=== PATIENT | male | born 1945 | race Caucasian/White ===

== ENCOUNTER 2019-04-11 07:36 | Outpatient (CLI) | payer MEDICARE, MEDICAID ==
[2019-04-11 12:15] LABS: ALBUMIN 3.7 g/dL (3.2-5.5); ALBUMIN/GLOBULIN RATIO 1.1 (1.0-2.2); ALKALINE PHOSPHATASE 57 IU/L (42-121); ALT ALANINE AMINOTRANSFERASE 16 IU/L (10-60); AST ASPARTATE AMINOTRANSFERASE 19 IU/L (10-42); BILIRUBIN,TOTAL 0.7 mg/dL (0.2-1.0); BUN - BLOOD UREA NITROGEN 28 mg/dL (6-20); CARBON DIOXIDE - CO2 27 mmol/L (21-32); CHLORIDE 105 mmol/L (101-111); CHOL/HDL RATIO 3.3 (<5.0); CHOLESTEROL 153 mg/dL; CK- CREATINE KINASE 110 IU/L (22-269); CREATININE 1.3 mg/dL (0.6-1.2); GFR - MDRD 54 (>89); GLUCOSE 88 mg/dL (70-100); HDL CHOLESTEROL 46 mg/dL; LDL CHOLESTEROL,CALCULATED 77 mg/dL; LDL/HDL RATIO 1.7 (<3.6); SODIUM 143 mmol/L (135-145); VLDL CHOLESTEROL 30 mg/dL
[2019-04-11 12:24] LABS: BASOPHILS # (AUTO) 0.1 10^3/uL (0.0-0.1); BASOPHILS % (AUTO) 0.9 %; EOSINOPHILS # (AUTO) 0.5 10^3/uL (0.0-0.7); EOSINOPHILS % (AUTO) 8.2 %; HGB - HEMOGLOBIN 14.1 g/dL (14.0-18.0); LYMPHOCYTES # (AUTO) 2.1 10^3/uL (1.5-3.5); LYMPHOCYTES % (AUTO) 32.5 %; MEAN CORPUSCULAR HEMOGLOBIN 28.4 pg (27.0-31.0); MEAN CORPUSCULAR HGB CONC 30.1 g/dL (32.0-36.0); MEAN CORPUSCULAR VOLUME 94.4 fL (80.0-94.0); MEAN PLATELET VOLUME 11.5 fL (7.4-11.4); MONOCYTES # (AUTO) 0.7 10^3/uL (0.0-1.0); MONOCYTES % (AUTO) 11.2 %; PLT - PLATELET COUNT 301 10^3/uL (130-450); RED BLOOD COUNT 4.97 10^6/uL (4.70-6.10); RED CELL DISTRIBUTION WIDTH 17.7 % (12.0-15.0); WHITE BLOOD COUNT 6.6 x10^3/uL (4.8-10.8)
[2019-04-12 11:36] LABS: HEPATITIS C ANTIBODY NON-REACTIVE (NON-REACTIVE)
== END 2019-04-11 23:59 | disposition home or self-care (01) ==
LOC: LAB.N 07:36
PROVIDERS: ATTEND Internal Medicine
DX: Z79.899 Other long term (current) drug therapy (principal); Z11.59 Encounter for screening for other viral diseases; Z13.6 Encounter for screening for cardiovascular disorders; I10 Essential (primary) hypertension; I48.91 Unspecified atrial fibrillation; K21.9 Gastro-esophageal reflux disease without esophagitis; E78.5 Hyperlipidemia, unspecified; Z87.820 Personal history of traumatic brain injury; F32.9 Major depressive disorder, single episode, unspecified; F41.9 Anxiety disorder, unspecified; J80 Acute respiratory distress syndrome; F20.9 Schizophrenia, unspecified; F03.90 Unspecified dementia, unspecified severity, without behavioral disturbance, psychotic disturbance, mood disturbance, and anxiety
CPT/HCPCS: 36415; 80053; 80061; 81001; 81003; 82550; 83721; 84443; 85025; 86803; 87086

== ENCOUNTER 2019-10-23 19:10 | Outpatient (CLI) | payer MEDICARE, MEDICAID | END 2019-10-23 19:11 | disposition EMS.NT | LOC: EMS 19:10 | PROVIDERS: ATTEND Surgery | DX: R53.1 Weakness (principal) ==

== ENCOUNTER 2021-05-07 09:00 | Outpatient (CLI) | payer MEDICARE, MEDICAID ==
[2021-05-07 12:32] LABS: BASOPHILS # (AUTO) 0.1 10^3/uL (0.0-0.1); BASOPHILS % (AUTO) 1.1 %; EOSINOPHILS # (AUTO) 0.7 10^3/uL (0.0-0.7); EOSINOPHILS % (AUTO) 11.1 %; HCT - HEMATOCRIT 52.2 % (42.0-52.0); HGB - HEMOGLOBIN 16.2 g/dL (14.0-18.0); LYMPHOCYTES # (AUTO) 1.5 10^3/uL (1.5-3.5); LYMPHOCYTES % (AUTO) 22.7 %; MEAN CORPUSCULAR HEMOGLOBIN 30.2 pg (27.0-31.0); MEAN CORPUSCULAR VOLUME 97.2 fL (80.0-94.0); MEAN PLATELET VOLUME 11.8 fL (7.4-11.4); MONOCYTES # (AUTO) 0.5 10^3/uL (0.0-1.0); NEUTROPHILS # (AUTO) 3.8 10^3/uL (1.5-6.6); NEUTROPHILS % (AUTO) 56.6 %; PLT - PLATELET COUNT 206 10^3/uL (130-450); RED BLOOD COUNT 5.37 10^6/uL (4.70-6.10); RED CELL DISTRIBUTION WIDTH 14.3 % (12.0-15.0); WHITE BLOOD COUNT 6.7 x10^3/uL (4.8-10.8)
[2021-05-07 12:48] LABS: ALBUMIN 3.8 g/dL (3.2-5.5); ALBUMIN/GLOBULIN RATIO 1.4 (1.0-2.2); ALKALINE PHOSPHATASE 53 IU/L (42-121); ALT ALANINE AMINOTRANSFERASE 16 IU/L (10-60); AST ASPARTATE AMINOTRANSFERASE 14 IU/L (10-42); BILIRUBIN,TOTAL 0.5 mg/dL (0.2-1.0); BUN - BLOOD UREA NITROGEN 25 mg/dL (6-20); CALCIUM 8.8 mg/dL (8.5-10.3); CARBON DIOXIDE - CO2 30 mmol/L (21-32); CHLORIDE 100 mmol/L (101-111); CHOL/HDL RATIO 3.5 (<5.0); CHOLESTEROL 149 mg/dL; CK- CREATINE KINASE 99 IU/L (22-269); CREATININE 1.3 mg/dL (0.6-1.2); GFR - MDRD 54 (>89); GLUCOSE 87 mg/dL (70-100); HDL CHOLESTEROL 43 mg/dL; LDL CHOLESTEROL,CALCULATED 78 mg/dL; LDL/HDL RATIO 1.8 (<3.6); MAGNESIUM 2.1 mg/dL (1.7-2.8); SODIUM 138 mmol/L (135-145); TOTAL PROTEIN 6.6 g/dL (6.7-8.2); TRIGLYCERIDES 139 mg/dL; VLDL CHOLESTEROL 28 mg/dL
== END 2021-05-07 09:01 | disposition home or self-care (01) ==
LOC: LAB.N 09:00
PROVIDERS: ATTEND Internal Medicine
DX: I10 Essential (primary) hypertension (principal); I48.91 Unspecified atrial fibrillation; E78.5 Hyperlipidemia, unspecified; F20.9 Schizophrenia, unspecified; M62.40 Contracture of muscle, unspecified site; Z13.6 Encounter for screening for cardiovascular disorders; Z79.899 Other long term (current) drug therapy
CPT/HCPCS: 36415; 80053; 80061; 82550; 83721; 83735; 84443; 85025

== ENCOUNTER 2023-09-02 17:04 | Outpatient (CLI) | payer MEDICARE, MEDICAID | END 2023-09-02 23:59 | disposition critical access hospital (66) | LOC: EMS 17:04 | DX: R53.1 Weakness (principal); Z86.16 Personal history of COVID-19 | CPT/HCPCS: A0425; A0429 ==

== ENCOUNTER 2023-09-02 17:54 | Inpatient (IN) | payer MEDICARE, MEDICAID ==
[2023-09-02 18:33] LABS: BASOPHILS % (AUTO) 0.6 %; HCT - HEMATOCRIT 42.6 % (42.0-52.0); HGB - HEMOGLOBIN 13.7 g/dL (14.0-18.0); LYMPHOCYTES % (AUTO) 2.1 %; MEAN CORPUSCULAR HEMOGLOBIN 29.9 pg (27.0-31.0); MEAN CORPUSCULAR HGB CONC 32.2 g/dL (32.0-36.0); MEAN PLATELET VOLUME 11.9 fL (7.4-11.4); MONOCYTES % (AUTO) 9.5 %; NEUTROPHILS % (AUTO) 82.7 %; PLT - PLATELET COUNT 348 10^3/uL (130-450); RED BLOOD COUNT 4.58 10^6/uL (4.70-6.10); RED CELL DISTRIBUTION WIDTH 14.9 % (12.0-15.0); WHITE BLOOD COUNT 27.8 x10^3/uL (4.8-10.8)
[2023-09-02 18:35] LABS: SLIDE REVIEW? Indicated
[2023-09-02 18:36] LABS: ABNORMAL LYMPHS % (MANUAL) 0 %
[2023-09-02 18:37] LABS: BILIRUBIN,TOTAL 0.5 mg/dL (0.2-1.0); CALCIUM 9.2 mg/dL (8.5-10.3); CARBON DIOXIDE - CO2 26 mmol/L (21-32); CHLORIDE 108 mmol/L (101-111); POTASSIUM 5.6 mmol/L (3.5-4.5); SODIUM 144 mmol/L (135-145)
[2023-09-02 18:42] LABS: ALKALINE PHOSPHATASE 63 IU/L (42-121); ALT ALANINE AMINOTRANSFERASE 15 IU/L (10-60); AST ASPARTATE AMINOTRANSFERASE 22 IU/L (10-42); BUN - BLOOD UREA NITROGEN 69 mg/dL (6-20); CREATININE 2.3 mg/dL (0.6-1.3); GFR - MDRD 28 (>89); GLUCOSE 108 mg/dL (74-104); TOTAL PROTEIN 6.1 g/dL (6.4-8.9)
[2023-09-02 18:51] LABS: LIPASE < 10 U/L (11-82)
--- NOTE | 2023-09-02 19:10 | XRAY Report ---
PROCEDURE: Chest 1V INDICATIONS: cough/sob/hypoxia TECHNIQUE: One view of the chest was acquired. COMPARISON: None. FINDINGS: Surgical changes and devices: None. Lungs and pleura: Large, loculated left-sided pleural effusion with left atelectasis/consolidation. Mediastinum: Mediastinal contours appear normal. Heart size is normal. Bones and chest wall: No suspicious bony lesions. Overlying soft tissues appear unremarkable. IMPRESSION: Large, loculated left-sided pleural effusion with left sided atelectasis/consolidation. Reviewed by: Rafael Olsen MD on 09/02/2023 7:08 PM PDT Approved by: Rafael Olsen MD on 09/02/2023 7:08 PM PDT Station ID: [id number]
[2023-09-02 19:20] LABS: BAND NEUTROPHILS % (MANUAL) 15 %; LYMPHOCYTES # (MANUAL) 1.1 10^3/uL (1.5-3.5); LYMPHOCYTES % (MANUAL) 1 %; MONOCYTES # (MANUAL) 2.5 10^3/uL (0.0-1.0); NEUTROPHILS # (MANUAL) 24.2 10^3/uL (1.5-6.6); REACTIVE LYMPHS % (MANUAL) 3 %
[2023-09-02 19:21] LABS: PLATELET ESTIMATE, MANUAL NORMAL (130-450,000) (NORMAL); PLATELET MORPHOLOGY NORMAL APPEARANCE (NORMAL); RBC MORPHOLOGY (MULTIPLE) NORMAL APPEARANCE (NORMAL)
[2023-09-02 19:22] LABS: DIFFERENTIAL COMMENT MANUAL DIFFERENTIAL
--- NOTE | 2023-09-02 19:31 | ED Physician Documentation ---
PD HPI DYSPNEA - Stated complaint Stated Complaint: LOW O2 SAT - Chief complaint Chief Complaint: Resp - History obtained from History obtained from: EMS - Additional information Additional information: 77yM presents from [facility] ([phone]) full code, with pmh TBI, schizophrenia, dementia, afib on xarelto and metoprolol, htn, recent covid last month. Patient is unreliable historian, alert to person and aware he is hospital but unable to state the year. [facility] jail called ems because his oxygen level was in low 80s on RA which is new for him. further history limited by patient dementia Review of Systems Unable to obtain: Dementia PD PAST MEDICAL HISTORY - Past Medical History Past Medical History: Yes Cardiovascular: Hypertension, Atrial fibrillation Respiratory: Other Neuro: Other GI: GERD Psych: Depression, Anxiety, Schizophrenia Other Past Medical History: TBI/ ARF - Allergies Allergies/Adverse Reactions: Allergies Allergy/AdvReac Type Severity Reaction Status Date / Time Sulfa (Sulfonamide Allergy Hives Verified 09/02/23 18:18 Antibiotics) - Social History Does the pt smoke?: No Smoking Status: Never smoker Does the pt drink ETOH?: No Does the pt have substance abuse?: No - Immunizations Immunizations are current?: Yes PD ED PE NORMAL - Vitals Vital signs reviewed: Yes - General General: Other (AOX1 or 2. mild increased wob. elderly appearing) - HEENT HEENT: Atraumatic, PERRL, EOMI, Moist mucous membranes, Pharynx benign - Neck Neck: Supple, no meningeal sign - Cardiac Cardiac: RRR - Respiratory Respiratory: Other (diminished L lung sounds) - Abdomen Abdomen: Non tender, Non distended Results - Vitals Vitals: Vital Signs - 24 hr 09/02/23 09/02/23 09/02/23 18:10 18:48 19:00 Temperature 37.1 C Heart Rate 83 83 75 Respiratory 37 H 28 H 33 H Rate Blood Pressure 144/49 H 132/47 H 122/52 L O2 Saturation 94 96 98 If not protocol 15 15 : Oxygen Flow, liters/minute Oxygen O2 Source Non-rebreather mask Oxygen Flow Rate 15 - Labs Labs: Laboratory Tests 09/02/23 09/02/23 17:55 17:55 WBC 27.8 H RBC 4.58 L Hgb 13.7 L Hct 42.6 MCV 93.0 MCH 29.9 MCHC 32.2 RDW 14.9 Plt Count 348 MPV 11.9 H Neut # (Auto) STAKE DRIVER Lymph # (Auto) STAKE DRIVER Hood # (Auto) STAKE DRIVER Eos # (Auto) STAKE DRIVER Baso # (Auto) STAKE DRIVER Absolute Nucleated RBC STAKE DRIVER Total Counted 100 Band Neuts % (Manual) 15 H Reactive Lymphs % (Man) 3 Abnorm Lymph % (Manual) 0 Nucleated RBC % STAKE DRIVER Neutrophils # (Manual) 24.2 H Lymphocytes # (Manual) 1.1 L Monocytes # (Manual) 2.5 H Eosinophils # (Manual) 0.0 Basophils # (Manual) 0.0 Differential Comment MANUAL DIFFERENTIAL Manual Slide Review Indicated Platelet Estimate NORMAL (130-450,000) Platelet Morphology NORMAL APPEARANCE RBC Morph Micro Appear NORMAL APPEARANCE Sodium 144 Potassium 5.6 H Chloride 108 Carbon Dioxide 26 Anion Gap 10.0 BUN 69 H Creatinine 2.3 H Estimated GFR (MDRD) 28 L Glucose 108 H Calcium 9.2 Total Bilirubin 0.5 AST 22 ALT 15 Alkaline Phosphatase 63 Total Protein 6.1 L Albumin 3.0 L Globulin 3.1 Albumin/Globulin Ratio 1.0 Lipase < 10 L PD Medical Decision Making - ED course ED course: 77yM with pmh dementia, afib on eliquis, presents with hypoxia from jail, desaturating to 70s here on arrival to ED off of oxygen. Patient now stabilized on 15L facemask at 96%. He is not tachycardic but his metoprolol may be masking septic signs. Septic workup ordered and antibiotics for HCAP ordered. small amount IVF provided given patient has large pleural effusion on left side on cxr. plan to admit to ICU. Departure - Departure Clinical Impression: Pneumonia, Hypoxia, Large pleural effusion Condition: Serious Forms: PCP List
[2023-09-02 19:57] LABS: VBG PH 7.34 (7.31-7.41)
[2023-09-02 19:58] LABS: VBG BASE EXCESS -0.8 mmol/L (-2 - +2); VBG HCO3 25.4 mmol/L (23-28); VBG OXYGEN SATURATION 65.5 % (60-80); VBG PCO2 48.2 mmHg (41-51); VBG PO2 36.6 mmHg (25-47); VBG TOTAL CO2 26.9 mmol/L (24-29)
[2023-09-02] MEDS ORDERED: VANCOMYCIN 1 GM VIAL ONE ×2 (20:24→21:37)
[2023-09-02] MEDS: SODIUM CHLORIDE 0.9% 250 ML IV STA (20:27)
[2023-09-02] MEDS: CEFEPIME 2 GM in SODIUM CHLORIDE 0.9% MINIBAG 100 ML IV STA (20:29)
[2023-09-02] MEDS ORDERED: SODIUM CHLORIDE FLUSH 0.9% 10 ML SYRINGE IVP PRN (20:57)
[2023-09-02] MEDS ORDERED: ONDANSETRON 4 MG/2 ML VIAL IVP PRN (20:57)
[2023-09-02] MEDS ORDERED: ACETAMINOPHEN 325 MG TABLET PO PRN (20:57)
--- NOTE | 2023-09-02 21:06 | HISTORY & PHYSICAL EXAMINATION ---
History of Present Illness - Admitted From Admitted From:: ED - History Obtained From Records Reviewed: EMR History obtained from: ED staff. patient c dementia Exam Limitations: Tele medicine - History of Present Illness HPI Comment/Other: 77YOM presents from [facility] ([phone]) full code, with pmh TBI, parkinsons, seizure, schizophrenia, dementia, afib on x arelto and metoprolol, htn, hld recent covid last month. Patient is unreliable historian, alert to person and aware he is hospital but unable to state the year. Staff at [facility] called ems because his oxygen level was in low 80s on RA which is new for him. further history limited by patient dementia. spoke with RN at [facility] re: patient and home meds Here in the ED, patient was hypoxic requiring face mask. he was noted for sepsis. CXR shows left loculated pleural effusion and consolidation. Patient was started on abx in the ED. ED staff reached out to Hospital Medicine for admission and medical management. ED staff confirm to Hospital Medicine that hospital has IR that can do thoracentesis/ chest tube for loculated pleural effusion with PNA management. History - Past Medical History Cardiovascular: reports: Hypertension, Atrial fibrillation Respiratory: reports: Other Neuro: reports: Other GI: reports: GERD Psych: reports: Depression, Anxiety, Schizophrenia Other Past Medical History: TBI/ ARF Meds/Allgy - Allergies Allergies/Adverse Reactions: Allergies Allergy/AdvReac Type Severity Reaction Status Date / Time Sulfa (Sulfonamide Allergy Hives Verified 09/02/23 18:18 Antibiotics) Review of Systems - Other Findings Other Findings: limited 2/2 dementia Exam - Vital Signs Reviewed Vital Signs: Yes Vital Signs: Vital Signs x48h Temp Pulse Resp BP Pulse Ox O2 Flow Rate 09/02/23 19:00 75 33 H 122/52 L 98 15 09/02/23 18:48 83 28 H 132/47 H 96 15 09/02/23 18:10 37.1 C 83 37 H 144/49 H 94 - Physical Exam General Appearance: positive: Alert, Mild distress Eyes Bilateral: positive: Normal inspection ENT: positive: ENT inspection nml Neck: positive: Nml inspection Respiratory: positive: Other (decrease breath sound left). negative: Wheezes, Rales, Rhonchi Cardiovascular: positive: Regular rate & rhythm Abdomen: positive: Non-tender Skin: positive: Color nml Extremities: positive: Nml appearance Neurologic/Psychiatric: positive: CN's nml (2-12). negative: Oriented x3 Sepsis Event Note (H) - Evaluation Current Stage of Sepsis: Sepsis Possible source of Sepsis: positive: Pulmonary Conclusion/Plan - Problem List (1) Sepsis Conclusion/Plan: tachypnea + leukocytosis + pna = sepsis. empiric abx. followup cultures. pna, acute hypox resp failure, and pleural effusion management (2) Acute hypoxemic respiratory failure Conclusion/Plan: 2/2 pna and pleural effusion. o2 support. breathing treatment. IR for pleural effusion management. (3) Large pleural effusion Conclusion/Plan: loculated. ED staff reports hospital has IR to drain and place chest tube. PNA & acute resp failure management (4) Pneumonia Conclusion/Plan: empiric abx. followup cultures. acute hypoxemic resp and pleural effusion management (5) Atrial fibrillation Conclusion/Plan: rate management with metoprolol. continue. monitor on tele. anticoagulated on Xarelto. holding 2/2 IR procedure. restart after procedure (6) Seizure Conclusion/Plan: siezure precaution. restart home divalproex (7) Dementia Conclusion/Plan: pleasant. monitor for delirium and agitation. restart home seratraline, clonazepam, quetiapine, and prn lorazepam - Lab Results Fish Bones: 09/02/23 17:55 09/02/23 17:55 - Diagnostic Imaging Results Diagnostic Imaging Results: positive: Final report reviewed - Other Other Results/Comments: Full code per outside records Son per patient SCDs, Xarelto Inpatient Core Measures - Anticipated LOS I expect patient to be DC'd or transferred within 96 hours.: No - Issues Hospital Issues and Management Plan: The patient consented to receive this telemedicine service, which I performed via live two-way audiovisual equipment. The patient is at ([facility]) and I am physically in [facility]. A nurse assisted me in the visit. - DVT/VTE - Prophylaxis VTE/DVT Device ordered at admit?: Yes Telemedicine Consult Details - Provider Location & Consult Time Telemedicine consultation conducted via videoconferencing?: Yes List names and roles of persons who participated in consult:: ED. mariia riggins RN. patient. RN Telemedicine provider location:: [facility] Time Telemedicine consult began:: 20:36 Time Telemedicine consult completed:: 21:41
[2023-09-02] MEDS: cefTRIAXone 2 GM in SODIUM CHLORIDE 0.9% MINIBAG 100 ML IV SCH (21:11)
[2023-09-02] MEDS: HEPARIN 5,000 UNIT/ML VIAL SUBQ SCH (21:13)
[2023-09-02 21:20] LABS: B. PARAPERTUSSIS- RESP PCR PAN NOT DETECTED; B. PERTUSSIS- RESP PCR PANEL NOT DETECTED; C. PNEUMONIAE- RESP PCR PANEL NOT DETECTED; CORONAVIRUS 229E-RESP PCR NOT DETECTED; CORONAVIRUS HKU1-RESP PCR NOT DETECTED; CORONAVIRUS NL63-RESP PCR NOT DETECTED; CORONAVIRUS OC43-RESP PCR NOT DETECTED; HUMAN METAPNEUMOVIRUS NOT DETECTED; INFLUENZA A- RESP PCR PANEL NOT DETECTED; INFLUENZA B - RESP PCR PANEL NOT DETECTED; M. PNEUMONIAE- RESP PCR PANEL NOT DETECTED; PARAINFLUENZA VIRUS 1 NOT DETECTED; PARAINFLUENZA VIRUS 2 NOT DETECTED; PARAINFLUENZA VIRUS 3 NOT DETECTED; PARAINFLUENZA VIRUS 4 NOT DETECTED; RHINOVIRUS/ENTEROVIRUS NOT DETECTED; RSV- RESP PCR PANEL NOT DETECTED; SARS-CoV-2 -RESP PCR PANEL NOT DETECTED
[2023-09-02] MEDS ORDERED: LORazepam 1 MG TABLET PO PRN (21:25)
[2023-09-02] MEDS: DOXYCYCLINE INJ 100 MG in SODIUM CHLORIDE 0.9% MINIBAG 100 ML IV SCH (21:34)
[2023-09-02] MEDS: VANCOMYCIN INJ 1.25 GM in SODIUM CHLORIDE 0.9% 250 ML IV STA ×2 (21:40→21:43)
[2023-09-02] MEDS: DIVALPROEX ER 250 MG TABLET PO SCH (23:24)
[2023-09-02] MEDS: QUEtiapine 100 MG TABLET PO SCH (23:25)
[2023-09-02] MEDS: SODIUM CHLORIDE FLUSH 0.9% 10 ML SYRINGE IVP SCH (23:29)
[2023-09-03 04:58] LABS: BASOPHILS % (AUTO) 0.7 %; HCT - HEMATOCRIT 37.1 % (42.0-52.0); LYMPHOCYTES % (AUTO) 3.3 %; MEAN CORPUSCULAR HEMOGLOBIN 29.9 pg (27.0-31.0); MEAN CORPUSCULAR HGB CONC 32.3 g/dL (32.0-36.0); MEAN CORPUSCULAR VOLUME 92.5 fL (80.0-94.0); MEAN PLATELET VOLUME 10.8 fL (7.4-11.4); MONOCYTES % (AUTO) 9.3 %; NEUTROPHILS % (AUTO) 84.4 %; PLT - PLATELET COUNT 313 10^3/uL (130-450); RED BLOOD COUNT 4.01 10^6/uL (4.70-6.10); RED CELL DISTRIBUTION WIDTH 14.6 % (12.0-15.0); WHITE BLOOD COUNT 24.7 x10^3/uL (4.8-10.8)
[2023-09-03 05:03] LABS: INR 1.4 (0.8-1.2); PT - PROTHROMBIN TIME 15.5 secs (9.9-12.6)
[2023-09-03 05:06] LABS: MAGNESIUM 2.1 mg/dL (1.7-2.3)
[2023-09-03 05:12] LABS: ABNORMAL LYMPHS % (MANUAL) 0 %; CALCIUM 8.4 mg/dL (8.5-10.3); PHOSPHORUS 4.6 mg/dL (2.5-5.0)
[2023-09-03 05:15] LABS: VBG PH 7.411 (7.31-7.41)
[2023-09-03 05:16] LABS: CALCIUM, IONIZED 1.1 mmol/L (1.15-1.33)
[2023-09-03 05:51] LABS: BAND NEUTROPHILS % (MANUAL) 35 %; LYMPHOCYTES # (MANUAL) 2.7 10^3/uL (1.5-3.5); LYMPHOCYTES % (MANUAL) 8 %; METAMYELOCYTES % (MANUAL) 1 %; MONOCYTES # (MANUAL) 2.2 10^3/uL (0.0-1.0); NEUTROPHILS # (MANUAL) 19.5 10^3/uL (1.5-6.6); REACTIVE LYMPHS % (MANUAL) 3 %
[2023-09-03 05:52] LABS: DIFFERENTIAL COMMENT MANUAL DIFFERENTIAL; WBC MORPHOLOGY (MULTIPLE) 1+ DOHLE BODIES (NORMAL)
[2023-09-03] MEDS: PANTOPRAZOLE 40 MG TABLET PO SCH (06:20)
[2023-09-03] MEDS: CALCIUM CARBONATE CHEW 500 MG TABLET PO SCH (06:20)
[2023-09-03] MEDS: SERTRALINE 50 MG TABLET PO SCH (08:07)
[2023-09-03] MEDS: LACTOBACILLUS RHAMNOSUS GG CAPSULE PO SCH (08:07)
[2023-09-03] MEDS: METOPROLOL SUCCINATE 25 MG TABLET PO SCH (08:07)
[2023-09-03] MEDS: FERROUS SULFATE 325 MG TABLET PO SCH (08:07)
[2023-09-03] MEDS: clonazePAM 0.5 MG TABLET PO SCH (08:07)
[2023-09-03] MEDS: QUEtiapine 100 MG TABLET PO SCH ×2 (08:08→11:34)
[2023-09-03] MEDS: FUROSEMIDE 20 MG TABLET PO SCH (08:08)
[2023-09-03] MEDS: IPRATROPIUM/ALBUTEROL 3 ML NEB INH SCH ×2 (10:18→19:18)
--- NOTE | 2023-09-03 10:49 | PHARMACY PROGRESS NOTE ---
- Best Possible Medication History Admit Date and Time: 09/02/232056 Processed by: Pharmacy Medications reviewed in ED?: Yes Medication History completed: Yes Patient Interview: Pt unable to participate Secondary Source(s): Insurance records, Facility MAR as ONLY source As the person ultimately responsible for medication therapy, providers are able to order a medication from an existing home medication list in [facility] via the "Reconcile Routine" prior to Confirmation of that medication by field technical support consultant. Such practice is discouraged except when the physician, in their clinical judgment, deems that a medical need exists for a medication without regard to previous use.
--- NOTE | 2023-09-03 10:49 | Ultrasound Report ---
PROCEDURE: Chest INDICATIONS: loculated pleural effusion, need chest tube place TECHNIQUE: Real-time scanning was performed, and a suitable site was marked by the inspector radar and electronics for thoracentesis to be performed by the referring clinician. COMPARISON: Same-day chest radiograph Findings and impression: Moderate loculated complex material is seen in the left upper quadrant above the spleen. Reviewed by: Yves Modi MD on 09/03/2023 10:47 AM PDT Approved by: Yves Modi MD on 09/03/2023 10:47 AM PDT Station ID: [id number]
[2023-09-03 10:58] LABS: ABG HCO3 23.6 mmol/L (22.0-26.0); ABG OXYGEN SATURATION 94 % (94-98); ABG PCO2 39 mmHg (34-45); ABG PO2 74 mmHg (80-100); ABG TCO2 24.7 MMOL/L (21.0-29.0); ALLEN TEST POSITIVE
[2023-09-03 14:06] LABS: CALCIUM, IONIZED 1.12 mmol/L (1.15-1.33); VBG PH 7.422 (7.31-7.41)
[2023-09-03] MEDS: SODIUM CHLORIDE 0.9% 1,000 ML IV SCH (15:18)
--- NOTE | 2023-09-03 15:36 | CONSULTATION NOTE ---
Referring Provider Consult Date: 09/03/23 Chief Complaint - Chief Complaint Chief Complaint: currently unresponsive to voice History of Present Illness - History Obtained From Records Reviewed: yes History obtained from: nurse and chart review Exam Limitations: currently unresponsive to voice. in memory care unit with dementia - History of Present Illness HPI Comment/Other: admitted from memory care unit with shortness of breath late last pm. on xarelto. cxr and ultrasound concerning for left chest empyema History - Past Medical History Cardiovascular: reports: Hypertension, Atrial fibrillation Respiratory: reports: Other Neuro: reports: Other GI: reports: GERD Psych: reports: Depression, Anxiety, Schizophrenia Other Past Medical History: TBI/ ARF Meds/Allgy - Home Medications Home Medications: Ambulatory Orders Medication Instructions Recorded Confirmed Divalproex Dr [Depakote Dr] 500 mg PO BID 09/03/23 09/03/23 Ezetimibe [Zetia] 10 mg PO DAILY 09/03/23 09/03/23 Furosemide [Lasix] 20 mg PO DAILY 09/03/23 09/03/23 Metoprolol Succinate [Toprol Xl] 25 mg PO BID 09/03/23 09/03/23 Pantoprazole [Protonix] 40 mg PO DAILY 09/03/23 09/03/23 QUEtiapine [SEROquel] 100 mg PO BID 09/03/23 09/03/23 Quetiapine Fumarate [Seroquel] 300 mg PO HS 09/03/23 09/03/23 Rivaroxaban [Xarelto] 20 mg PO QPM 09/03/23 09/03/23 Sertraline [Zoloft] 50 mg PO HS 09/03/23 09/03/23 Simvastatin [Zocor] 20 mg PO HS 09/03/23 09/03/23 clonazePAM [Clonazepam] 0.5 mg PO BID 09/03/23 09/03/23 - Allergies Allergies/Adverse Reactions: Allergies Allergy/AdvReac Type Severity Reaction Status Date / Time Sulfa (Sulfonamide Allergy Hives Verified 09/02/23 18:18 Antibiotics) Exam - Vital Signs Vital Signs: Vital Signs x48h Temp Pulse Pulse Resp BP Pulse Ox O2 Flow Rate 09/03/23 15:00 74 26 H 112/48 L 91 L 15 09/03/23 14:00 98.9 C H 67 24 131/45 H 91 L 15 09/03/23 12:56 71 27 H 107/54 L 93 15 09/03/23 12:00 72 25 H 107/54 L 93 15 09/03/23 11:00 70 26 H 132/46 H 91 L 15 09/03/23 10:23 79 16 15 09/03/23 10:21 15 09/03/23 10:00 72 25 H 115/47 L 94 15 09/03/23 08:59 81 21 122/61 89 L 15 09/03/23 07:57 98.4 C H 09/03/23 07:49 70 22 121/54 L 93 15 - Physical Exam General Appearance: positive: No acute distress Eyes Bilateral: positive: PERRL, EOMI ENT: positive: No signs of dehydration Neck: positive: No JVD, Trachea midline Respiratory: positive: No respiratory distress, Other (on face mask oxygen and mild tachypnea) Abdomen: positive: No distention Neurologic/Psychiatric: positive: Other (unrespsonsive to voice at this time) Conclusion/Plan - Problem List (1) Acute hypoxemic respiratory failure Conclusion/Plan: recommend ct scan chest and discussion with son on treatment plan. he has dementia and us and cxr concerning for empyema. if he has more that a simple effusion surgery may be necessary. mortality is high with empyema. simple aspiration of an empyema is not adequate per thoracic guidelines. if he has more than one fluid collection and/ or appears to have a fibropurulent empyema surgery is recommended per guidelines. [facility]. will follow up on the ct scan and see him tomorrow. - Lab Results Fish Bones: 09/03/23 04:19 09/03/23 04:19
--- NOTE | 2023-09-03 16:13 | PHARMACY PROGRESS NOTE ---
- Therapy Status Vancomycin regimen day #: 2 Therapy status: Awaiting steady state Basis for treatment: Empirical Treatment indication: PNA Trough goal: 400-600 Concurrent antibiotics: CTX, doxy - to switch to cefepime - CHULA Risk Risk level for Acute Kidney Injury: High Acute Kidney Injury risk factors: Other nephrotoxic agents, Goal trough >15, Admission to ICU, Sepsis - Monitoring and Recommendation Clinical response to treatment: I&O Previous 24 hours 09/01/23 09/02/23 09/03/23 23:59 23:59 23:59 Intake Total 250 Balance 250 Lab Results 09/02/23 17:55 BUN 69 H Creatinine 2.3 H Estimated GFR (MDRD) 28 L Areas for additional monitoring: IV to PO when appropriate, Therapy de- escalation based on culture results, Acute Kidney Injury Pharmacy recommendation: Continue current regime
--- NOTE | 2023-09-03 17:04 | XRAY Report ---
PROCEDURE: Chest for Line Placement INDICATIONS: NGT TECHNIQUE: One view of the chest was acquired. COMPARISON: 08/23/2023. FINDINGS: Surgical changes and devices: An NG tube projects to the body of the stomach. Lungs and pleura: Large potentially loculated left pleural effusion and associated atelectasis and p ossible consolidation versus mass in the left lung. Part of the process includes atelectasis, as ther e is mild mediastinal shift to the left. Mediastinum: Mediastinal contours appear normal. Heart size is normal. Bones and chest wall: No suspicious bony lesions. Overlying soft tissues appear unremarkable. IMPRESSION: 1. NG tube tip projects to body of stomach. 2. Large left pleural effusion, possibly multiloculated. 3. There is left basilar compressive atelectasis. There may also be consolidation and/or mass. Comment: It is noted that the patient scheduled to undergo CT chest with contrast. Reviewed by: Carter Montelongo MD on 09/03/2023 5:03 PM PDT Approved by: Carter Montelongo MD on 09/03/2023 5:03 PM PDT Station ID: [id number]
[2023-09-03] MEDS ORDERED: iohexoL-300 100 ML VIAL ONE (18:03)
[2023-09-03] MEDS: iohexoL-300 100 ML VIAL IVP ONE (19:06)
--- NOTE | 2023-09-03 19:22 | CT Report ---
PROCEDURE: Chest W INDICATIONS: loculated pna or mass above spleen CONTRAST: 100ml omni 300 TECHNIQUE: After the administration of intravenous contrast, a CT scan of the chest was performed. Images were recorded and evaluated at appropriate window settings. Reformats: axial MIP of the chest, coronal and sagittal. For radiation dose reduction, the following was used: automated exposure control, adjustme nt of mA and/or kV according to patient size. COMPARISON: Chest ultrasound 09/03/2023 FINDINGS: Image quality: Diagnostic. Chest wall and lower neck: No thyroid nodule which requires sonographic follow up. No axillary or sup raclavicular adenopathy by size. Lungs and pleura: Right lung demonstrates minimal effusion and superimposed consolidative opacity. Th ere is near complete opacification of the left hemithorax with fluid and superimposed heterogeneous c onsolidative opacity. There is complete obliteration of the left mainstem bronchus. Mediastinum: Heart size is enlarged. 2.2 cm pericardial effusion. Pericardial effusion. No large vess el abnormality. Several enlarged mediastinal lymph nodes are present including a 1.2 cm subcarinal no de.. Nasogastric tube is present. Bones: No aggressive osseous abnormality. Upper Abdomen: Unremarkable. IMPRESSION: Near complete left hemithorax opacification secondary to moderate effusion with superimposed consolid ative opacity. The latter is felt to be likely predominantly atelectasis. However, there is obliterat ion of the left mainstem bronchus raising concern for endobronchial lesion with distal atelectatic co llapse. Further evaluation with bronchoscopy is recommended. Pericardium effusion. Minimal effusion and superimposed consolidative changes in the right pulmonary base likely representi ng Reviewed by: Jacquelin Soni MD on 09/03/2023 7:20 PM PDT Approved by: Jacquelin Soni MD on 09/03/2023 7:20 PM PDT Station ID: [id number]
--- NOTE | 2023-09-03 19:25 | CT Report ---
PROCEDURE: Abdomen/Pelvis W INDICATIONS: loculated mass/pna LUQ above spleen? CONTRAST: 100ml omni 300 TECHNIQUE: After the administration of intravenous contrast, a CT scan of the abdomen and pelvis was performed. Images were recorded and evaluated at appropriate window settings. Reformats: coronal and sagittal. F or radiation dose reduction, the following was used: automated exposure control, adjustment of mA and /or kV according to patient size. COMPARISON: CT chest 09/03/2023 FINDINGS: Image quality: Diagnostic. Lower chest: Bilateral effusions and opacities. Please see separately dictated CT chest report of 08/19. Liver: No solid mass. Gallbladder and biliary tree: Distended without visualized stone. Spleen: No splenomegaly. Pancreas: No pancreatic ductal dilation. Adrenals: No adrenal nodule. Kidneys and ureters: No hydronephrosis. No renal cystic lesion which requires follow up. No solid mas s. Simple bilateral renal cysts. Stomach, bowel and peritoneum: No bowel distension. Mild to moderate colonic stool. Mild appearance of lower pelvic fluid. Colonic diverticular present. Lymph nodes: No central or retroperitoneal adenopathy. Vessels: No infrarenal aortic aneurysm. PELVIS Reproductive organs: Unremarkable. Bladder: Markedly thickened. It is incompletely distended with a Hamlin catheter. Nondependent air is present suspected to be related to catheter insertion. Pelvic lymph nodes: No pelvic adenopathy by size criteria. Bones: No aggressive osseous abnormality. Other: No significant ventral or inguinal hernia. IMPRESSION: Bilateral pulmonary effusions and consolidative opacities as well as possible endobronchial lesion. P lease see CT chest report of 09/03/2023 for further details. Moderate colonic stool. Diverticulosis. Mild dependent pelvic fluid of uncertain etiology. Reviewed by: Jacquelin Soni MD on 09/03/2023 7:23 PM PDT Approved by: Jacquelin Soni MD on 09/03/2023 7:23 PM PDT Station ID: [id number]
[2023-09-03] MEDS ORDERED: METOPROLOL 5 MG/5 ML VIAL IVP PRN (19:32)
--- NOTE | 2023-09-03 19:39 | PROVIDER PROGRESS NOTE ---
Progress Note September 03, 2023 2 PM Patient is not unable to swallow. As such have made him n.p.o. and we will have to figure out how were going to feed him. And how organ to give him his medications. I ordered an ultrasound to see how big the pleural effusion was. In the chest ultrasound shows him to have moderate loculated complex material seen in the left upper quadrant above the spleen. Is not telling me that it is in his chest but possibly in his abdomen? General surgery has seen the patient in consultation. I would ask him to put in the chest tube since today's radiologist is not an interventional radiologist. As such I have ordered a CT of the chest and abdomen. I have discussed the case with the patient's son. Son describes dad having severe alcohol abuse in the past. They lost contact for quite some time and recently regained relationship. He used to live in [place], and from [place] got put in a pen[facility]iary facility in [place]. He was there for a year. Then from [place] he came here. He lives in a half-way here in [place]. I asked about CODE STATUS. In the past dad did not want resuscitation. This was in association with a hospital stay in [facility]. He and his dad do not talk about things like that. He does not know who the POA is. Patient may have a state guardian he does not know. But he does know that his dad did not want to be resuscitated. Exam: Temperature is 98.9. Pulse is 77. Respirations 24. He has been slightly tachypneic all day with fast panting up to 28. He is on 15 L nonrebreather and saturating at 91%. He appears to be a elderly gentleman with slight respiratory distress, mouth open head hanging down. Lower eyelids appear to be everted with pink conjunctiva visible. Sclera nonicteric. Neck is with shotty adenopathy Course rhonchi, slight prolonged and exhalation but no wheezing. No use of accessory muscles in spite of the tachypnea. Dull left base. Abdomen is soft, nontender, hypoactive bowel sounds. No left upper quadrant mass. No fluid wave. Extremities thickened, trace edema Neurologically he recognizes his son, woke up from his sleep when son said "dad". Is having short conversations with him consisting of a few word answers. But the patient does not seem to be oriented to place or situation. Generalized weakness no focal deficits. Lab: Sodium 146, potassium 5, BUN 70, creatinine 2.0. His BUN and creatinine have improved. Yesterday creatinine was 2.3. Potassium is improved and that yesterday was 5.6. White cell count is still elevated at 24.7 thousand. He was 27,000 yesterday. Anemia is at 12 g hemoglobin. Yesterday was 13.7. 35% bandemia. 1% metamyelocytes. Platelets are 313. He does have blood cultures that were done and pending Assessment/plan 1. Sepsis. He still has tachypnea, leukocytosis, pneumonia. Technically still within the septic range of criteria but he is on maximal medical therapy short of intubation. I will continue antibiotics and adjust antibiotics on the basis of any cultures that come back. 2. Acute respiratory failure with hypoxemia. Secondary pneumonia and pleural effusion. I plan on continuing his ICU status with oxygen support. But the patient is a DO NOT INTUBATE DO NOT RESUSCITATE. The most I will use his BiPAP if it comes to that. 3. Pneumonia with large pleural effusion. Loculated. Surgery says that this is complicated, and doubts that he will be able to take care of his patient here. Nevertheless I will get a CT of the chest, abdomen and pelvis. See if I can better analyze what is going on here anatomically. I have given the son a heads up that way I may have to transfer the patient. He prefers that the patient go to [facility]. 4. Chronic atrial fibrillation. Rate controlled and anticoagulated. No change in medication 5. History of seizure disorder. I cannot get him to swallow. So I think him going to have to start giving him medicines through an NG tube. I am hoping to temporize. I really do not want to put a tube feeding down this gentleman. But I may have to in order to feed him and give him his meds. I will change his p.o. Depakote to IV Keppra for the next 24 hours. 6. Nutrition needs. Currently not being met because he cannot swallow. The not swallowing is new according to what the son said. Nursing is not allowed to put in a Farooq feeding tube. And we do not have fluoroscopy that allows radiology to put in KO feeding tubes. I will discuss with general surgery and see if there is any other tube that I can use short of a plastic NG tube which is still uncomfortable. In the meantime his other p.o. meds of Tylenol, atorvastatin, Klonopin, ferrous gluconate, Lasix, Ativan, metoprolol succinate, pantoprazole, Seroquel, Zoloft will be changed to IV equivalent. If there is no IV equivalent I will hold the medication. 7. Alcohol induced dementia. Will have to verify with social work who the DPOA is. If this patient has a court appointed guardian?
[2023-09-03] MEDS: levETIRAcetam INJ 500 MG in SODIUM CHLORIDE 0.9% 100ML 100 ML IV SCH (20:43)
[2023-09-03] MEDS ORDERED: ATORVASTATIN 40 MG TABLET PO SCH (21:00)
[2023-09-03] MEDS ORDERED: cefTRIAXone 2 GM in SODIUM CHLORIDE 0.9% MINIBAG 100 ML IV SCH (21:00)
[2023-09-03] MEDS: VANCOMYCIN INJ 1 GM in SODIUM CHLORIDE 0.9% 250 ML IV SCH (21:24)
[2023-09-03] MEDS: ENOXAPARIN 60 MG/0.6 ML SYRINGE SUBQ SCH (21:28)
[2023-09-03] MEDS: OLANZapine ODT 5 MG TABLET TL SCH (21:57)
[2023-09-04 05:14] LABS: BASOPHILS # (AUTO) 0.2 10^3/uL (0.0-0.1); BASOPHILS % (AUTO) 0.6 %; LYMPHOCYTES # (AUTO) 0.9 10^3/uL (1.5-3.5); LYMPHOCYTES % (AUTO) 3.1 %; MEAN CORPUSCULAR HEMOGLOBIN 30.5 pg (27.0-31.0); MEAN CORPUSCULAR HGB CONC 33.3 g/dL (32.0-36.0); MEAN CORPUSCULAR VOLUME 91.4 fL (80.0-94.0); MEAN PLATELET VOLUME 10.3 fL (7.4-11.4); MONOCYTES % (AUTO) 6.6 %; NEUTROPHILS # (AUTO) 25.3 10^3/uL (1.5-6.6); NEUTROPHILS % (AUTO) 85.8 %; NRBC ABSOLUTE COUNT (AUTO) 0.02 x10^3/uL; NUCLEATED RED BLOOD CELLS AUTO 0.1 /100WBC; PLT - PLATELET COUNT 312 10^3/uL (130-450); RED BLOOD COUNT 3.94 10^6/uL (4.70-6.10); RED CELL DISTRIBUTION WIDTH 14.8 % (12.0-15.0); WHITE BLOOD COUNT 29.5 x10^3/uL (4.8-10.8)
[2023-09-04 05:41] LABS: CALCIUM 8.6 mg/dL (8.5-10.3); CREATININE 1.7 mg/dL (0.6-1.3); POTASSIUM 4.7 mmol/L (3.5-4.5)
[2023-09-04 05:43] LABS: MAGNESIUM 2.3 mg/dL (1.7-2.3); PHOSPHORUS 4.2 mg/dL (2.5-5.0)
[2023-09-04 05:47] LABS: CALCIUM, IONIZED 1.12 mmol/L (1.15-1.33); VBG PH 7.406 (7.31-7.41)
[2023-09-04 06:07] LABS: PLATELET ESTIMATE, MANUAL NORMAL (130-450,000) (NORMAL); PLATELET MORPHOLOGY NORMAL APPEARANCE (NORMAL)
[2023-09-04 06:09] LABS: DIFFERENTIAL COMMENT MANUAL=AUTO DIFF
[2023-09-04] MEDS: PANTOPRAZOLE 40 MG VIAL IVP SCH (06:35)
[2023-09-04] MEDS: FUROSEMIDE 20 MG/2 ML VIAL IVP SCH (08:07)
[2023-09-04] MEDS: levETIRAcetam INJ 500 MG in SODIUM CHLORIDE 0.9% 100ML 100 ML IV SCH (09:04)
[2023-09-04] MEDS: DEXTROSE 5% 1,000 ML IV SCH (09:42)
--- NOTE | 2023-09-04 12:21 | PROVIDER PROGRESS NOTE ---
Subjective - Prog Note Date Prog Note Date: 09/04/23 Objective - Vital Signs/Intake & Output Vital Signs: Vital Signs x48h Temp Pulse Pulse Resp BP Pulse Ox O2 Flow Rate 09/04/23 12:13 36.7 C 09/04/23 12:00 75 17 153/60 H 93 15 09/04/23 11:44 66 18 15 09/04/23 11:00 73 18 174/60 H 93 15 09/04/23 10:00 74 19 151/62 H 95 15 09/04/23 09:00 72 22 154/53 H 91 L 15 09/04/23 08:00 74 19 149/56 H 93 15 09/04/23 07:38 37.6 C 09/04/23 07:20 68 20 15 09/04/23 07:00 66 17 158/58 H 92 15 09/04/23 06:00 68 21 149/60 H 88 L 15 09/04/23 05:00 66 22 152/59 H 90 L 15 Intake & Output: Intake & Output 09/01/23 09/02/23 09/03/23 09/04/23 23:59 23:59 23:59 23:59 Intake Total 078 195 1061.277 Output Total 1005 1493 Balance 600 -400 282.277 - Lab Results Fish Bones: 09/04/23 04:26 09/04/23 04:26 Other Labs: Lab Results x24hrs 09/04/23 09/04/23 09/04/23 Range/Units 04:26 04:26 04:26 WBC (4.8-10.8) x10^3/uL RBC (4.70-6.10) 10^6/uL Hgb (14.0-18.0) g/dL Hct (42.0-52.0) % MCV (80.0-94.0) fL MCH (27.0-31.0) pg MCHC (32.0-36.0) g/dL RDW (12.0-15.0) % Plt Count (130-450) 10^3/uL MPV (7.4-11.4) fL Neut # (Auto) (1.5-6.6) 10^3/uL Lymph # (Auto) (1.5-3.5) 10^3/uL Wake # (Auto) (0.0-1.0) 10^3/uL Eos # (Auto) (0.0-0.7) 10^3/uL Baso # (Auto) (0.0-0.1) 10^3/uL Absolute Nucleated RBC x10^3/uL Total Counted Band Neuts % (Manual) Abnorm Lymph % (Manual) Nucleated RBC % /100WBC Neutrophils # (Manual) Lymphocytes # (Manual) Monocytes # (Manual) Eosinophils # (Manual) Basophils # (Manual) Differential Comment Platelet Estimate (NORMAL) Platelet Morphology (NORMAL) RBC Morph Micro Appear (NORMAL) VBG pH 7.406 (7.31-7.41) Ionized Calcium 1.12 L (1.15-1.33) mmol/L Sodium 148 H (135-145) mmol/L Potassium 4.7 H (3.5-4.5) mmol/L Chloride 115 H (101-111) mmol/L Carbon Dioxide 26 (21-32) mmol/L Anion Gap 7.0 (6-13) BUN 69 H (6-20) mg/dL Creatinine 1.7 H (0.6-1.3) mg/dL Estimated GFR (MDRD) 39 L (>89) Glucose 89 (74-104) mg/dL Calcium 8.6 (8.5-10.3) mg/dL Phosphorus 4.2 (2.5-5.0) mg/dL Magnesium 2.3 (1.7-2.3) mg/dL 09/04/23 09/03/23 Range/Units 04:26 13:49 WBC 29.5 H (4.8-10.8) x10^3/uL RBC 3.94 L (4.70-6.10) 10^6/uL Hgb 12.0 L (14.0-18.0) g/dL Hct 36.0 L (42.0-52.0) % MCV 91.4 (80.0-94.0) fL MCH 30.5 (27.0-31.0) pg MCHC 33.3 (32.0-36.0) g/dL RDW 14.8 (12.0-15.0) % Plt Count 312 (130-450) 10^3/uL MPV 10.3 (7.4-11.4) fL Neut # (Auto) 25.3 H (1.5-6.6) 10^3/uL Lymph # (Auto) 0.9 L (1.5-3.5) 10^3/uL Wake # (Auto) 2.0 H (0.0-1.0) 10^3/uL Eos # (Auto) 0.0 (0.0-0.7) 10^3/uL Baso # (Auto) 0.2 H (0.0-0.1) 10^3/uL Absolute Nucleated RBC 0.02 x10^3/uL Total Counted TEMPER MILL ROLLER Band Neuts % (Manual) [employer] MILL ROLLER Abnorm Lymph % (Manual) TEM[employer] MILL ROLLER Nucleated RBC % 0.1 /100WBC Neutrophils # (Manual) TEMPER MILL ROLLER Lymphocytes # (Manual) TEM[employer] MILL ROLLER Monocytes # (Manual) TEMPER MILL ROLLER Eosinophils # (Manual) TEMPER MILL ROLLER Basophils # (Manual) TEMPER MILL ROLLER Differential Comment MANUAL=AUTO DIFF Platelet Estimate NORMAL (130-450,000) (NORMAL) Platelet Morphology NORMAL APPEARANCE (NORMAL) RBC Morph Micro Appear ACANTHOCYTES (NORMAL) VBG pH 7.422 H (7.31-7.41) Ionized Calcium 1.12 L (1.15-1.33) mmol/L Sodium (135-145) mmol/L Potassium (3.5-4.5) mmol/L Chloride (101-111) mmol/L Carbon Dioxide (21-32) mmol/L Anion Gap (6-13) BUN (6-20) mg/dL Creatinine (0.6-1.3) mg/dL Estimated GFR (MDRD) (>89) Glucose (74-104) mg/dL Calcium (8.5-10.3) mg/dL Phosphorus (2.5-5.0) mg/dL Magnesium (1.7-2.3) mg/dL Sepsis Event Note (H) - Evaluation Current Stage of Sepsis: Sepsis Possible source of Sepsis: positive: Pulmonary Assessment/Plan - Problem List (1) Acute hypoxemic respiratory failure Impression: chart reviewed, ct scan reports reviewed, and imaging reviewed. 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 recommend comfort measures only vs transfer to higher level of care with pul monologists and thoracic surgery
--- NOTE | 2023-09-04 14:09 | PROVIDER PROGRESS NOTE ---
Subjective - Prog Note Date Prog Note Date: 09/04/23 Prog Note Time: 14:05 - Subjective Pt reports feeling: No change Subjective: Patient is still not able to swallow. As such his n.p.o. status still stands, will utalize NG tube for feeding. his medications have been switched from PO to IV. The patient pulled off his NG tube and mask and is now becoming hypoxic. so we will need to apply soft restraints to prevent patient from causing further harm. An ultrasound was ordered to see how big the pleural effusion was. The chest ultrasound shows him to have moderate loculated complex material seen in the left upper quadrant above the spleen. Is not telling me that it is in his chest but possibly in his abdomen? As such a CT of the chest and abdomen was ordered. chest CT of the chest noted obliteration of the left mainstem bronchus. bronchoscopy recomended for evaluation for potential endobronchial lesion w/ distal atelectatic collapse. Abdomen CT results noted diverticulosis, mild-moderate colonic stool, and mild dependent pelvic fluid of uncertain etiology. The case has been discussed with the patient's son. Son describes dad having severe alcohol abuse in the past. They lost contact for quite some time and recently regained relationship. He used to live in [place], and from [place] got put in a retirement facility in [place]. He was there for a year. Then from [place] he came here. He lives in a [facility] here in [place]. CODE STATUS has been addressed. In the past dad did not want resuscitation. This was in association with a hospital stay in [facility]. He and his dad do not talk about things like that. He does not know who the POA is. Patient may have a state guardian he does not know. But he does know that his dad did not want to be resuscitated. Current Medications - Current Medications Current Medications: Active Medications Albuterol/Ipratropium (Ipratropium/Albuterol 3 Ml Neb) 3 ml INH RTQID [facility] Last Admin: 09/04/23 11:42 Dose: 3 ml Enoxaparin Sodium (Enoxaparin 60 Mg/0.6 Ml Syringe) 60 mg SUBQ BID [facility] Last Admin: 09/04/23 08:07 Dose: 60 mg Furosemide (Furosemide 20 Mg/2 Ml Vial) 20 mg IVP DAILY [facility] Last Admin: 09/04/23 08:07 Dose: 20 mg Ceftriaxone Sodium 2 gm/ (Sodium Chloride) 100 mls @ 200 mls/hr IV DAILY [facility] Last Infusion: 09/04/23 08:45 Dose: Infused Vancomycin HCl 1 gm/ Sodium (Chloride) 250 mls @ 167 mls/hr IV Q24H [facility] Last Infusion: 09/04/23 02:35 Dose: Infused Levetiracetam 500 mg/ Sodium (Chloride) 105 mls @ 400 mls/hr IV BID [facility] Last Infusion: 09/04/23 09:45 Dose: Infused Dextrose (D5w) 1,000 mls @ 83.333 mls/hr IV .Q12H [facility] Last Admin: 09/04/23 09:42 Dose: 83.333 mls/hr Lorazepam (Lorazepam 2 Mg/Ml Vial) 0.5 mg IVP Q2H PRN PRN Reason: Anxiety Metoprolol Tartrate (Metoprolol 5 Mg/5 Ml Vial) 5 mg IVP Q6H PRN PRN Reason: tachycardia >110 for >2 minute Olanzapine (Olanzapine Odt 5 Mg Tablet) 5 mg TL DAILY [facility] Last Admin: 09/04/23 08:07 Dose: 5 mg Ondansetron HCl (Ondansetron 4 Mg/2 Ml Vial) 4 mg IVP Q6HR PRN PRN Reason: Nausea / Vomiting Pantoprazole Sodium (Pantoprazole 40 Mg Vial) 40 mg IVP QDAC [facility] Last Admin: 09/04/23 06:35 Dose: 40 mg Sodium Chloride (Sodium Chloride Flush 0.9% 10 Ml Syringe) 10 ml IVP 0100,0900,1700 [facility] Last Admin: 09/04/23 08:07 Dose: 10 ml Sodium Chloride (Sodium Chloride Flush 0.9% 10 Ml Syringe) 10 ml IVP PRN PRN PRN Reason: NEEDED PER PROVIDER ORDERS Divalproex Dr [Depakote Dr] 500 mg PO BID 09/03/23 Ezetimibe [Zetia] 10 mg PO DAILY 09/03/23 Furosemide [Lasix] 20 mg PO DAILY 09/03/23 Metoprolol Succinate [Toprol Xl] 25 mg PO BID 09/03/23 Pantoprazole [Protonix] 40 mg PO DAILY 09/03/23 QUEtiapine [SEROquel] 100 mg PO BID 09/03/23 Quetiapine Fumarate [Seroquel] 300 mg PO HS 09/03/23 Rivaroxaban [Xarelto] 20 mg PO QPM 09/03/23 Sertraline [Zoloft] 50 mg PO HS 09/03/23 Simvastatin [Zocor] 20 mg PO HS 09/03/23 clonazePAM [Clonazepam] 0.5 mg PO BID 09/03/23 Objective - Vital Signs/Intake & Output Reviewed Vital Signs: Yes Vital Signs: Vital Signs x48h Temp Pulse Pulse Resp BP Pulse Ox O2 Flow Rate 09/04/23 13:00 69 21 150/60 H 94 15 09/04/23 12:13 36.7 C 09/04/23 12:00 75 17 153/60 H 93 15 09/04/23 11:44 66 18 15 09/04/23 11:00 73 18 174/60 H 93 15 09/04/23 10:00 74 19 151/62 H 95 15 09/04/23 09:00 72 22 154/53 H 91 L 15 09/04/23 08:00 74 19 149/56 H 93 15 09/04/23 07:38 37.6 C 09/04/23 07:20 68 20 15 09/04/23 07:00 66 17 158/58 H 92 15 Intake & Output: Intake & Output 09/01/23 09/02/23 09/03/23 09/04/23 23:59 23:59 23:59 23:59 Intake Total 216 661 2938.277 Output Total 1005 1528 Balance 600 -400 247.277 - Objective General Appearance: positive: Mild distress Eyes Bilateral: positive: No scleral icterus Neck: positive: Nml inspection, No JVD Respiratory: positive: Rales. negative: No respiratory distress (mild tachypnea), Wheezes Cardiovascular: positive: No murmur, No gallop Abdomen: positive: Non-tender, No organomegaly. negative: Nml bowel sounds (hypoactive), Guarding, Rebound, Mass Neurologic/Psychiatric: positive: Weakness, Other (agitated (pulled off oxygen mask and NG tube)). negative: Disoriented to place - Lab Results Fish Bones: 09/04/23 04:26 09/04/23 04:26 Other Labs: Lab Results x24hrs 09/04/23 09/04/2309/03/24 Range/Units 04:26 04:26 04:26 WBC (4.8-10.8) x10^3/uL RBC (4.70-6.10) 10^6/uL Hgb (14.0-18.0) g/dL Hct (42.0-52.0) % MCV (80.0-94.0) fL MCH (27.0-31.0) pg MCHC (32.0-36.0) g/dL RDW (12.0-15.0) % Plt Count (130-450) 10^3/uL MPV (7.4-11.4) fL Neut # (Auto) (1.5-6.6) 10^3/uL Lymph # (Auto) (1.5-3.5) 10^3/uL [place] # (Auto) (0.0-1.0) 10^3/uL Eos # (Auto) (0.0-0.7) 10^3/uL Baso # (Auto) (0.0-0.1) 10^3/uL Absolute Nucleated RBC x10^3/uL Total Counted Band Neuts % (Manual) Abnorm Lymph % (Manual) Nucleated RBC % /100WBC Neutrophils # (Manual) Lymphocytes # (Manual) Monocytes # (Manual) Eosinophils # (Manual) Basophils # (Manual) Differential Comment Platelet Estimate (NORMAL) Platelet Morphology (NORMAL) RBC Morph Micro Appear (NORMAL) VBG pH 7.406 (7.31-7.41) Ionized Calcium 1.12 L (1.15-1.33) mmol/L Sodium 148 H (135-145) mmol/L Potassium 4.7 H (3.5-4.5) mmol/L Chloride 115 H (101-111) mmol/L Carbon Dioxide 26 (21-32) mmol/L Anion Gap 7.0 (6-13) BUN 69 H (6-20) mg/dL Creatinine 1.7 H (0.6-1.3) mg/dL Estimated GFR (MDRD) 39 L (>89) Glucose 89 (74-104) mg/dL Calcium 8.6 (8.5-10.3) mg/dL Phosphorus 4.2 (2.5-5.0) mg/dL Magnesium 2.3 (1.7-2.3) mg/dL 09/04/23 09/03/23 Range/Units 04:26 13:49 WBC 29.5 H (4.8-10.8) x10^3/uL RBC 3.94 L (4.70-6.10) 10^6/uL Hgb 12.0 L (14.0-18.0) g/dL Hct 36.0 L (42.0-52.0) % MCV 91.4 (80.0-94.0) fL MCH 30.5 (27.0-31.0) pg MCHC 33.3 (32.0-36.0) g/dL RDW 14.8 (12.0-15.0) % Plt Count 312 (130-450) 10^3/uL MPV 10.3 (7.4-11.4) fL Neut # (Auto) 25.3 H (1.5-6.6) 10^3/uL Lymph # (Auto) 0.9 L (1.5-3.5) 10^3/uL [place] # (Auto) 2.0 H (0.0-1.0) 10^3/uL Eos # (Auto) 0.0 (0.0-0.7) 10^3/uL Baso # (Auto) 0.2 H (0.0-0.1) 10^3/uL Absolute Nucleated RBC 0.02 x10^3/uL Total Counted VICTIM WITNESS ADMINISTRATOR Band Neuts % (Manual) VICTIM WITNESS ADMINISTRATOR Abnorm Lymph % (Manual) VICTIM WITNESS ADMINISTRATOR Nucleated RBC % 0.1 /100WBC Neutrophils # (Manual) VICTIM WITNESS ADMINISTRATOR Lymphocytes # (Manual) VICTIM WITNESS ADMINISTRATOR Monocytes # (Manual) VICTIM WITNESS ADMINISTRATOR Eosinophils # (Manual) VICTIM WITNESS ADMINISTRATOR Basophils # (Manual) VICTIM WITNESS ADMINISTRATOR Differential Comment MANUAL=AUTO DIFF Platelet Estimate NORMAL (130-450,000) (NORMAL) Platelet Morphology NORMAL APPEARANCE (NORMAL) RBC Morph Micro Appear ACANTHOCYTES (NORMAL) VBG pH 7.422 H (7.31-7.41) Ionized Calcium 1.12 L (1.15-1.33) mmol/L Sodium (135-145) mmol/L Potassium (3.5-4.5) mmol/L Chloride (101-111) mmol/L Carbon Dioxide (21-32) mmol/L Anion Gap (6-13) BUN (6-20) mg/dL Creatinine (0.6-1.3) mg/dL Estimated GFR (MDRD) (>89) Glucose (74-104) mg/dL Calcium (8.5-10.3) mg/dL Phosphorus (2.5-5.0) mg/dL Magnesium (1.7-2.3) mg/dL ABX Reporting Has patient been on IV antibiotics over the past 48 hours?: No Sepsis Event Note (H) - Evaluation Current Stage of Sepsis: Sepsis Possible source of Sepsis: positive: Pulmonary Assessment/Plan - Problem List (1) Sepsis Impression: 1. He still has tachypnea, leukocytosis, pneumonia. Technically still within the septic range of criteria but he is on maximal medical therapy short of intubation. I will continue antibiotics and adjust antibiotics on the basis of any cultures that come back. 2. Acute respiratory failure with hypoxemia. Secondary to pneumonia and post obstructive pleural effusion. I plan on continuing his ICU status with oxygen support. But the patient is a DO NOT INTUBATE DO NOT RESUSCITATE. The most I will use is BiPAP if it comes to that. 3. Pneumonia with large pleural effusion. Loculated. Surgery says that this is complicated, and doubts that he will be able to take care of his patient here. Nevertheless I will get a CT of the chest, abdomen and pelvis. See if I can better analyze what is going on here anatomically. The son has been given a heads up that the patient may have to be transfered. He prefers that the patient go to [facility]. 4. Chronic atrial fibrillation. Rate controlled and anticoagulated. No change in medication 5. History of seizure disorder. Couldnt get patient to swallow. So started g iving him medicines through an NG tube. His p.o. Depakote was switched to IV Keppra for the 24 hours and will continue till patient is able to resume self feeding. 6. Nutrition needs. Was not being met because he cannot swallow. The not swallowing is new according to what the son said. Nursing is not allowed to put in a Farooq feeding tube. And we do not have fluoroscopy that allows radiology to put in KO feeding tubes. General surgery was consulted to see if there was any other tube that could be used short of a plastic NG tube which is still uncomfortable. In the meantime his other p.o. meds of Tylenol, atorvastatin, Klonopin, ferrous gluconate, Lasix, Ativan, metoprolol succinate, pantoprazole, Seroquel, Zoloft have been changed to IV equivalent. If there was no IV equivalent then the medication was held. Patient Pulled out his NG tube and pulled of his oxygen mask, the patient will be placed on soft restraint to help prevent reoccurrence and potential further harm 7. Alcohol induced dementia. Will have to verify with social work who the DPOA is. If this patient has a court appointed guardian?
--- NOTE | 2023-09-04 16:10 | XRAY Report ---
PROCEDURE: Chest for Line Placement INDICATIONS: new NG tube placement TECHNIQUE: One view of the chest was acquired. COMPARISON: Chest radiograph 09/03/2023, CT chest 09/03/2023. FINDINGS: Surgical changes and devices: Interval placement of an enteric tube. Distal course of the tube is di fficult to assess given positioning and complete opacification of the left hemithorax. Lungs and pleura: Complete opacification of the left hemithorax Mediastinum: Mediastinal contours appear normal. Heart size is normal. Bones and chest wall: No suspicious bony lesions. Overlying soft tissues appear unremarkable. IMPRESSION: Interval placement of an enteric tube, however distal course is not well seen due to patient position ing and left lung opacification. Recommend repeat radiographs including view of the abdomen to confir m appropriate position of the nasogastric tube. Redemonstration of complete opacification of the left hemithorax. Recommendation a repeat radiograph was discussed with ordering provider by Dr. Kumari at 4:08 PM PST on 09/04/2023 Reviewed by: Trista Kumari MD on 09/04/2023 3:09 PM FATIMAH Approved by: Trista Kumari MD on 09/04/2023 3:09 PM FATIMAH Station ID: [id number]
--- NOTE | 2023-09-04 18:04 | XRAY Report ---
PROCEDURE: No-Charge 1V Abdomen INDICATIONS: NG placement TECHNIQUE: 1 view of the abdomen were acquired. COMPARISON: Chest x-ray dated 09/02/2023. FINDINGS: Surgical changes and devices: NG tube tip projects to the body of stomach. Lung hernandez: Progression of opacification of the left hemithorax, complete. Bowel: No pneumoperitoneum. The bowel gas pattern is normal. Stool load within normal limits. Soft tissues: No masses; visualized solid organ contours appear normal in size. No suspicious abdom inal calcifications. Bones: No suspicious bony abnormalities. IMPRESSION: NG tube tip projects to the body of stomach. 2. Progression of opacification of the left thorax, complete Reviewed by: Carter Montelongo MD on 09/04/2023 6:03 PM PDT Approved by: Carter Montelongo MD on 09/04/2023 6:03 PM PDT Station ID: [id number]
[2023-09-05 05:28] LABS: BASOPHILS % (AUTO) 0.1 %; EOSINOPHILS % (AUTO) 0.1 %; HCT - HEMATOCRIT 34.4 % (42.0-52.0); HGB - HEMOGLOBIN 11.3 g/dL (14.0-18.0); LYMPHOCYTES % (AUTO) 3.1 %; MEAN CORPUSCULAR HEMOGLOBIN 29.6 pg (27.0-31.0); MEAN CORPUSCULAR HGB CONC 32.8 g/dL (32.0-36.0); MEAN CORPUSCULAR VOLUME 90.1 fL (80.0-94.0); MEAN PLATELET VOLUME 10.1 fL (7.4-11.4); MONOCYTES % (AUTO) 6.3 %; NEUTROPHILS % (AUTO) 82.6 %; PLT - PLATELET COUNT 318 10^3/uL (130-450); RED BLOOD COUNT 3.82 10^6/uL (4.70-6.10); RED CELL DISTRIBUTION WIDTH 14.9 % (12.0-15.0); WHITE BLOOD COUNT 34.4 x10^3/uL (4.8-10.8)
[2023-09-05 05:36] LABS: CALCIUM, IONIZED 1.13 mmol/L (1.15-1.33); VBG PH 7.416 (7.31-7.41)
[2023-09-05 05:41] LABS: ABNORMAL LYMPHS % (MANUAL) 0 %; BAND NEUTROPHILS % (MANUAL) 0 %
[2023-09-05 05:44] LABS: CALCIUM 8.5 mg/dL (8.5-10.3); CREATININE 1.5 mg/dL (0.6-1.3); MAGNESIUM 2.3 mg/dL (1.7-2.3); PHOSPHORUS 2.9 mg/dL (2.5-5.0); POTASSIUM 3.9 mmol/L (3.5-4.5)
[2023-09-05 06:08] LABS: LYMPHOCYTES # (MANUAL) 0.3 10^3/uL (1.5-3.5); LYMPHOCYTES % (MANUAL) 1 %; MONOCYTES # (MANUAL) 3.1 10^3/uL (0.0-1.0)
[2023-09-05 06:09] LABS: DIFFERENTIAL COMMENT MANUAL DIFFERENTIAL; PLATELET ESTIMATE, MANUAL NORMAL (130-450,000) (NORMAL); PLATELET MORPHOLOGY 1+ LARGE PLATELETS (NORMAL); RBC MORPHOLOGY (MULTIPLE) NORMAL APPEARANCE (NORMAL)
[2023-09-05] MEDS: POTASSIUM CHLORIDE 20 MEQ/15 ML UDC NG ONE (09:01)
--- NOTE | 2023-09-05 10:12 | PROVIDER PROGRESS NOTE ---
Subjective - Prog Note Date Prog Note Date: 09/05/23 Prog Note Time: 10:10 - Subjective Pt reports feeling: Improved Subjective: Patient seemed less lethargic today. He states that he is not experiencing any chest pain or dyspnea. He mentioned that he would like to have something to eat. RN was advised to perform a bedside swallow study and if patient does well we can start with liquid food and then during lunch provide more solid foods. If the patient does well with the feeding today then he will be able to be transferred today or within the next 2 days. PT and OT need to be discontinued due to patient desatting when turned on left side. He was informed and educated on the chest CT findings. He stated that he would like to receive treatment for potential left lung cancer. He will need to be cleared by medical records manager Current Medications - Current Medications Current Medications: Active Medications Albuterol/Ipratropium (Ipratropium/Albuterol 3 Ml Neb) 3 ml INH RTQID KWESI Last Admin: 09/05/23 07:14 Dose: 3 ml Enoxaparin Sodium (Enoxaparin 60 Mg/0.6 Ml Syringe) 60 mg SUBQ BID KWESI Last Admin: 09/05/23 07:43 Dose: 60 mg Furosemide (Furosemide 20 Mg/2 Ml Vial) 20 mg IVP DAILY KWESI Last Admin: 09/05/23 07:43 Dose: 20 mg Ceftriaxone Sodium 2 gm/ (Sodium Chloride) 100 mls @ 200 mls/hr IV DAILY KWESI Last Infusion: 09/05/23 08:30 Dose: Infused Vancomycin HCl 1 gm/ Sodium (Chloride) 250 mls @ 167 mls/hr IV Q24H KWESI Last Infusion: 09/05/23 01:03 Dose: Infused Levetiracetam 500 mg/ Sodium (Chloride) 105 mls @ 400 mls/hr IV BID KWESI Last Infusion: 09/05/23 09:17 Dose: Infused Dextrose (D5w) 1,000 mls @ 83.333 mls/hr IV .Q12H KWESI Last Infusion: 09/05/23 09:17 Dose: 83.333 mls/hr Lorazepam (Lorazepam 2 Mg/Ml Vial) 0.5 mg IVP Q2H PRN PRN Reason: Anxiety Metoprolol Tartrate (Metoprolol 5 Mg/5 Ml Vial) 5 mg IVP Q6H PRN PRN Reason: tachycardia >110 for >2 minute Olanzapine (Olanzapine Odt 5 Mg Tablet) 5 mg TL DAILY [facility] Last Admin: 09/05/23 07:43 Dose: 5 mg Ondansetron HCl (Ondansetron 4 Mg/2 Ml Vial) 4 mg IVP Q6HR PRN PRN Reason: Nausea / Vomiting Pantoprazole Sodium (Pantoprazole 40 Mg Vial) 40 mg IVP QDAC [facility] Last Admin: 09/05/23 06:16 Dose: 40 mg Sodium Chloride (Sodium Chloride Flush 0.9% 10 Ml Syringe) 10 ml IVP 0100,0900,1700 [facility] Last Admin: 09/05/23 07:43 Dose: 10 ml Sodium Chloride (Sodium Chloride Flush 0.9% 10 Ml Syringe) 10 ml IVP PRN PRN PRN Reason: NEEDED PER PROVIDER ORDERS Divalproex Dr [Depakote Dr] 500 mg PO BID 09/03/23 Ezetimibe [Zetia] 10 mg PO DAILY 09/03/23 Furosemide [Lasix] 20 mg PO DAILY 09/03/23 Metoprolol Succinate [Toprol Xl] 25 mg PO BID 09/03/23 Pantoprazole [Protonix] 40 mg PO DAILY 09/03/23 QUEtiapine [SEROquel] 100 mg PO BID 09/03/23 Quetiapine Fumarate [Seroquel] 300 mg PO HS 09/03/23 Rivaroxaban [Xarelto] 20 mg PO QPM 09/03/23 Sertraline [Zoloft] 50 mg PO HS 09/03/23 Simvastatin [Zocor] 20 mg PO HS 09/03/23 clonazePAM [Clonazepam] 0.5 mg PO BID 09/03/23 Objective - Vital Signs/Intake & Output Reviewed Vital Signs: Yes Vital Signs: Vital Signs x48h Temp Pulse Pulse Resp BP Pulse Ox O2 Flow Rate 09/05/23 10:00 68 17 166/63 H 96 15 09/05/23 09:00 73 18 162/59 H 90 L 09/05/23 08:00 68 21 159/55 H 94 15 09/05/23 07:34 37.1 C 09/05/23 07:15 70 18 09/05/23 07:00 66 23 165/69 H 95 15 09/05/23 06:00 68 21 165/59 H 95 15 09/05/23 05:00 66 18 169/62 H 95 15 09/05/23 04:00 65 20 156/64 H 95 15 09/05/23 03:00 65 17 149/64 H 95 15 Intake & Output: Intake & Output 09/02/23 09/03/23 09/04/23 09/05/23 23:59 23:59 23:59 23:59 Intake Total 063 029 2759.277 1258.886 Output Total 1005 2053 975 Balance 600 -400 827.277 283.886 - Objective General Appearance: positive: Mild distress, Lethargic Neck: positive: No JVD, Trachea midline Respiratory: positive: Chest non-tender, No respiratory distress Cardiovascular: positive: No murmur, No gallop. negative: Tachycardia Abdomen: positive: Non-tender, No distention. negative: Guarding, Rebound Skin: positive: Color nml. negative: Cyanosis, Diaphoresis, Pallor Neurologic/Psychiatric: positive: Oriented x3, Weakness - Lab Results Fish Bones: 09/05/23 04:34 09/05/23 12:50 Other Labs: Lab Results x24hrs 09/05/23 09/05/23 09/05/23 Range/Units 04:34 04:34 04:34 WBC (4.8-10.8) x10^3/uL RBC (4.70-6.10) 10^6/uL Hgb (14.0-18.0) g/dL Hct (42.0-52.0) % MCV (80.0-94.0) fL MCH (27.0-31.0) pg MCHC (32.0-36.0) g/dL RDW (12.0-15.0) % Plt Count (130-450) 10^3/uL MPV (7.4-11.4) fL Neut # (Auto) Lymph # (Auto) [place] # (Auto) Eos # (Auto) Baso # (Auto) Absolute Nucleated RBC Total Counted Band Neuts % (Manual) (0 - 10) % Abnorm Lymph % (Manual) % Nucleated RBC % Neutrophils # (Manual) (1.5-6.6) 10^3/uL Lymphocytes # (Manual) (1.5-3.5) 10^3/uL Monocytes # (Manual) (0.0-1.0) 10^3/uL Eosinophils # (Manual) (0-0.7) 10^3/uL Basophils # (Manual) (0-0.1) 10^3/uL Differential Comment Platelet Estimate (NORMAL) Platelet Morphology (NORMAL) RBC Morph Micro Appear (NORMAL) VBG pH 7.416 H (7.31-7.41) Ionized Calcium 1.13 L (1.15-1.33) mmol/L Sodium 148 H (135-145) mmol/L Potassium 3.9 (3.5-4.5) mmol/L Chloride 115 H (101-111) mmol/L Carbon Dioxide 26 (21-32) mmol/L Anion Gap 7.0 (6-13) BUN 58 H (6-20) mg/dL Creatinine 1.5 H (0.6-1.3) mg/dL Estimated GFR (MDRD) 46 L (>89) Glucose 100 (74-104) mg/dL Calcium 8.5 (8.5-10.3) mg/dL Phosphorus 2.9 (2.5-5.0) mg/dL Magnesium 2.3 (1.7-2.3) mg/dL // Range/Units 04:34 WBC 34.4 H (4.8-10.8) x10^3/uL RBC 3.82 L (4.70-6.10) 10^6/uL Hgb 11.3 L (14.0-18.0) g/dL Hct 34.4 L (42.0-52.0) % MCV 90.1 (80.0-94.0) fL MCH 29.6 (27.0-31.0) pg MCHC 32.8 (32.0-36.0) g/dL RDW 14.9 (12.0-15.0) % Plt Count 318 (130-450) 10^3/uL MPV 10.1 (7.4-11.4) fL Neut # (Auto) Not Reportable Lymph # (Auto) Not Reportable [place] # (Auto) Not Reportable Eos # (Auto) Not Reportable Baso # (Auto) Not Reportable Absolute Nucleated RBC Not Reportable Total Counted 100 Band Neuts % (Manual) 0 (0 - 10) % Abnorm Lymph % (Manual) 0 % Nucleated RBC % Not Reportable Neutrophils # (Manual) 31.0 H (1.5-6.6) 10^3/uL Lymphocytes # (Manual) 0.3 L (1.5-3.5) 10^3/uL Monocytes # (Manual) 3.1 H (0.0-1.0) 10^3/uL Eosinophils # (Manual) 0.0 (0-0.7) 10^3/uL Basophils # (Manual) 0.0 (0-0.1) 10^3/uL Differential Comment MANUAL DIFFERENTIAL Platelet Estimate NORMAL (130-450,000) (NORMAL) Platelet Morphology 1+ LARGE PLATELETS (NORMAL) RBC Morph Micro Appear NORMAL APPEARANCE (NORMAL) VBG pH (7.31-7.41) Ionized Calcium (1.15-1.33) mmol/L Sodium (135-145) mmol/L Potassium (3.5-4.5) mmol/L Chloride (101-111) mmol/L Carbon Dioxide (21-32) mmol/L Anion Gap (6-13) BUN (6-20) mg/dL Creatinine (0.6-1.3) mg/dL Estimated GFR (MDRD) (>89) Glucose (74-104) mg/dL Calcium (8.5-10.3) mg/dL Phosphorus (2.5-5.0) mg/dL Magnesium (1.7-2.3) mg/dL - Diagnostic Imaging Diagnostic Imaging Results: positive: See rad report ABX Reporting Has patient been on IV antibiotics over the past 48 hours?: Yes Sepsis Event Note (H) - Evaluation Current Stage of Sepsis: Resolved Possible source of Sepsis: positive: Pulmonary Assessment/Plan - Problem List (1) Sepsis Impression: 1. He still has leukocytosis and pneumonia. Tachypnea has resolved. He is no longer within the septic range of criteria but he is on maximal medical therapy short of intubation. He was treated with Abx. Sepsis has resolved. 2. Acute respiratory failure with hypoxemia. Secondary to pneumonia and post obstructive pleural effusion. I plan on continuing his ICU status with oxygen support. But the patient is a DO NOT INTUBATE DO NOT RESUSCITATE. The most I will use is BiPAP if it comes to that. 3. Pneumonia with large pleural effusion. Loculated. Surgery says that this is complicated, and doubts that he will be able to take care of his patient here. Nevertheless I will get a CT of the chest, abdomen and pelvis. See if I can better analyze what is going on here anatomically. The son has been given a heads up that the patient may have to be transfered. He prefers that the patient go to [facility]. Chest CT of the chest noted obliteration of the left mainstem bronchus. bronchoscopy recommended for evaluation for potential endobronchial lesion w/ distal atelectatic collapse. Patient was educated on findings. Plan on managing with comfort measures and have the patient transferred hospice or possibly snf. 4. Chronic atrial fibrillation. Rate controlled and anticoagulated. No change in medication 5. History of seizure disorder. Couldnt get patient to swallow. So started giving him medicines through an NG tube. His p.o. Depakote was switched to IV Keppra for the 24 hours and will continue till patient is able to resume self feeding. 6. Nutrition needs. Was not being met because he cannot swallow. The not swallowing is new according to what the son said. Nursing is not allowed to put in a Farooq feeding tube. And we do not have fluoroscopy that allows radiology to put in KO feeding tubes. General surgery was consulted to see if there was any other tube that could be used short of a plastic NG tube which is still uncomfortable. In the meantime his other p.o. meds of Tylenol, atorvastatin, K lonopin, ferrous gluconate, Lasix, Ativan, metoprolol succinate, pantoprazole, Seroquel, Zoloft have been changed to IV equivalent. If there was no IV equivalent then the medication was held. Patient will continue to receive meds through IV till off of NPO status Patient Pulled out his NG tube and pulled of his oxygen mask on 09/04, the patient was placed on soft restraint to help prevent reoccurrence and potential further harm, soft restraints will continue to be applied to prevent the patient from tampering with medical interventions. His family will come tomorrow to pay there final respects. Afterwords the patient will be free to remove oxygen mask Today he asked to eat. We will perform a swallow study and if he does well, we will progress to liquid food then solids 7. Alcohol induced dementia. Will have to verify with social work who the DPOA is. If this patient has a court appointed guardian?
--- NOTE | 2023-09-05 11:48 | ADVANCE CARE PLANNING NOTE ---
Advance Care Planning - Planning Encounter Date: 09/05/23 Time: 11:44 Purpose: Verify CODE STATUS and establish care goals Parties in Attendance: Son Bala, [id number] Chilo, patient Decisional Capacity of the Patient: Patient has moderate cognitive deficits. Long history of alcohol abuse locations and resulted placement in correction facilities for long-term care for several years now. Today he is alert to person, knows that it is his son Bala and [id number] Stew. He knows that he has possible cancer. But very slow to process information - Encounter Subjective/Patient's Story: His son and [id number] asked to speak to me today. Patient was admitted as shortness of breath from a memory care unit [facility] [place]. I was able to speak to one of his caregivers that has been taking care of him at [facility]. She thinks he has been there at least 3 or 4 years. Patient has a long history of alcoholism which resulted in fragmentation of the family unit. His at age 64 of complications of alcohol and smoking. He has not been in contact with his sons, Abram and Bala, for many years. But in the last 4 years, after the patient was hospitalized to [facility] in 2019, Bala has reconciled with him and has and infrequent dinner with him, about 3-4 a year. Bala lives in [place]. Graham is not in the picture. The patient filled out, through his DPOA son Bala, a POLST form in October 2018 while at [facility]. He has never filled out formal paperwork to make his son DPOA. But when I asked him today if his son is in fact his designated advocate, the patient says yes. That if I have any questions or any worries that I am supposed to ask Bala. His [id number] Benson endorses that. Son Graham is not in the picture. Unfortunately, son Graham went on to repeat the cycle of alcohol and substance abuse. He has no contact with his father. Graham has been notified that his dad is in the hospital and has chosen not to come visit. The caregiver [facility] describes Mr. Donaldson is a very active gentleman. She says that "my Hany walks all over the place". He rarely uses a walker. He was a hearty eater and was always looking to sit down at the table to get his next meal. He has moderate cognitive deficits. He could walk into a room and forget why he was there or what he was looking for. He would lose track of the conversation and had to be reminded. But he was always polite, clean, and easily cued and prompted. No behavioral issues. He had COVID a month ago and she noted a downward trend that was very sudden. Unfortunately he smokes like a fiend nonstop throughout the day. The first thing she noticed was that he was so weak he could not hold up a cigarette, and still wanted to smoke in his room which is not allowed. About 3 weeks ago he lost his appetite. He noticeably lost weight. A cough that was attributed to COVID did not go away. It became nonstop. No hemoptysis. No fevers. No sweats. He went from not using a walker to always using a walker. And then the week before admission to the hospital, he could not even get out of bed with a walker. With this in context, Bala is tearful. It is a fragile relationship with his dad but he wants to honor his dad's wishes. His uncle Benson is here as a emotional support. Mr. Donaldson has acknowledged that I have told him he has cancer. He remembers my conversation this morning and repeated it to his son. That it does not look good. I have given him an option of comfort measures versus moving forward with the biopsy and identification of this mass for possible treatment. I have told the patient and his family that I do not think he would survive treatment. His funtional status is very poor. He is on a 15 L nonrebreather. Just rolling over in bed causes him to desaturate into the 80s with a 15 L nonrebreather. He is asking for food. He says he is hungry. But he is lost the ability to swallow normally. Nevertheless, the patient says that he would like to move forward with treatment. I have explained to he and son Bala that that would be transferred to the [facility] because we do not have the specialty care that would allow us to make diagnosis and then follow-up with treatment. Bala is asking if we could please provide emotional jainism support for his dad. That is not a very jainism person but he does attend services at his [facility] when there is a skidder runner there. While they want to advocate for Mr. Donaldson, they are also seeing the big picture. They hesitate to contradict him but want him to understand the gravity of the situation. I have already spoken to the patient. They are wondering if there is a palliative customer care associate that can speak to the patient and possibly give him a different way of looking at things to get him to possibly change his mind. Objective/Medical Story: [id number] presents from [facility] ([phone]) full code, with pmh TBI, parkinsons, seizure, schizophrenia, dementia, afib on xarelto and metoprolol, htn, hld recent covid last month. Patient is unreliable historian, alert to person and aware he is hospital but unable to state the year. Staff at [facility] called ems because his oxygen level was in low 80s on RA which is new for him. further history limited by patient dementia. spoke with RN at [facility] re: patient and home meds Here in the ED, patient was hypoxic requiring face mask. he was noted for sepsis. CXR shows left loculated pleural effusion and consolidation. Patient was started on abx in the ED. ED staff reached out to Hospital Medicine for admission and medical management. ED staff confirm to Hospital Medicine that hospital has IR that can do thoracentesis/ chest tube for loculated pleural effusion with PNA management. - Past Medical History Cardiovascular: reports: Hypertension, Atrial fibrillation Respiratory: reports: Other Neuro: reports: Other GI: reports: GERD Psych: reports: Depression, Anxiety, Schizophrenia Other Past Medical History: TBI/ ARF The day after admission a CT of chest abdomen and pelvis was done. Ultrasound shows a mass above his spleen that is multi loculated. CT chest abdomen pelvis shows that the mass is in his left chest. He has a left mainstem endobronchial lesion that is because postobstructive consolidation of the left lung. Pleural effusion present. And has acute respiratory failure. On 15 L nonrebreather. Very fragile. Just rolling over in bed causes him to desaturate. He is alert and oriented to person. Confused about the place intermittently. Oriented to his son. Understands that he has a cancer but not the global scope of his poor functional status or how poorly he is doing.Oriented to date. Goals of Care: The patient would like to move forward with treatment. I explained to the son that I would like to honor dad's wishes but in context of such a poor functional status I do not think his dad would survive much of a workup much less definitive treatment. I am looking to guidance from he and his uncle about what to do. At this time there are tentatively moving forward with allowing me to find a workup. I would have to transfer him to higher level of care. They understand that the global picture is that of a poor prognosis. That even with treatment, this patient most most likely not survive. They want me to focus on comfort, pain medicines, and advocating for the patient while he is still awake and alert. Plan: 1. I will start reaching out to hospitals in the region. Son has identified [place] as the hospital closest to him. 2. As the patient worsens, and I expect him to do so, he may start to lose consciousness. At that time son says that he will most likely lean toward comfort measures and stopping aggressive interventions. 3. If the patient transitions to hospice, the family would like him moved to a correction facility near the son in [facility]. 4. Change CODE STATUS in the EMR to DO NOT RESUSCITATE. I will also have a copy of the POLST form from [facility] scanned into the EMR. Both the son and the [id number]-ghi endorse the veracity of the POLST. They remember that conversation and the patient has not wavered from DO NOT RESUSCITATE, selective treatment since that time. 5. Today is Wednesday. Palliative care not available on the weekends. Nevertheless I will reach out to Mary Butterfield tomorrow morning and see if she can spend time with this telly gentleman. Code Status: Do Not Attempt Resuscitation Time spent on advance care plannin minutes
[2023-09-05] MEDS ORDERED: DEXAMETHASONE 4 MG/ML VIAL IVP PRN (14:09)
[2023-09-05] MEDS ORDERED: ONDANSETRON ODT 4 MG TABLET TL PRN (14:09)
[2023-09-05] MEDS ORDERED: LORazepam 2 MG/ML VIAL IVP PRN (14:09)
[2023-09-05] MEDS: ATROPINE 1% OPHTH DROPS 2 ML SL PRN (15:06)
[2023-09-05] MEDS: LORazepam 2 MG/ML VIAL IVP PRN (18:44)
[2023-09-05] MEDS: MORPHINE 2 MG/ML CARPUJECT IVP PRN (20:53)
[2023-09-06] MEDS: NICOTINE 21 MG PATCH TOP SCH (12:10)
--- NOTE | 2023-09-06 16:21 | PROVIDER PROGRESS NOTE ---
Subjective - Prog Note Date Prog Note Date: 09/06/23 Prog Note Time: 16:17 - Subjective Subjective: The patient has been comfortable on 15 L nonrebreather. Maintaining O2 sats. However if he takes it off to eat, he drops into the 70s. His main request for me today was a cigarette. I have given him a nicotine patch at 21 mg and his request to have a cigarette have faded away. He denies any pain. He recognizes sister, and his son Bala. His [id number], Bala's , and ukiqxys-[id number] from marriage to his sister are all here. They are saying their goodbyes. They are all very concerned that I make him comfortable. They want a make sure that any symptom is being addressed and I went over the medication list with him. The morphine, Ativan, Robinul, nicotine patch, Zofran, and Compazine were discussed. Current Medications - Current Medications Current Medications: Active Medications Albuterol/Ipratropium (Ipratropium/Albuterol 3 Ml Neb) 3 ml INH RTQID [facility] Last Admin: 09/05/23 21:00 Dose: 3 ml Atropine Sulfate (Atropine 1% Ophth Drops 2 Ml) 1 - 4 drops SL Q2H PRN PRN Reason: Excessive secretions Last Admin: 09/05/23 15:06 Dose: 2 drops Dexamethasone (Dexamethasone 4 Mg/Ml Vial) 4 mg IVP DAILY PRN PRN Reason: Nausea / Vomiting Levetiracetam (Levetiracetam 500 Mg/5 Ml Udc) 500 mg PO BID [facility] Lorazepam (Lorazepam 2 Mg/Ml Vial) 0.5 mg IVP Q2H PRN PRN Reason: Anxiety Last Admin: 09/06/23 06:26 Dose: 0.5 mg Lorazepam (Lorazepam 2 Mg/Ml Vial) 1 mg IVP Q6H PRN PRN Reason: Anxiety/Agitation Metoprolol Tartrate (Metoprolol 5 Mg/5 Ml Vial) 5 mg IVP Q6H PRN PRN Reason: tachycardia >110 for >2 minute Morphine Sulfate (Morphine 2 Mg/Ml Carpuject) 2 mg IVP Q2HR PRN PRN Reason: Severe Pain (Level 7-10)/ SOA Last Admin: 09/06/23 08:12 Dose: 2 mg Nicotine (Nicotine 21 Mg Patch) 1 patch TOP DAILY [facility] Last Admin: 09/06/23 12:10 Dose: 1 patch Olanzapine (Olanzapine Odt 5 Mg Tablet) 5 mg TL DAILY [facility] Last Admin: 09/06/23 08:12 Dose: 5 mg Ondansetron HCl (Ondansetron 4 Mg/2 Ml Vial) 4 mg IVP Q6HR PRN PRN Reason: Nausea / Vomiting Ondansetron HCl (Ondansetron Odt 4 Mg Tablet) 4 mg TL Q8H PRN PRN Reason: Nausea / Vomiting Sodium Chloride (Sodium Chloride Flush 0.9% 10 Ml Syringe) 10 ml IVP 0100 ,0900,1700 [facility] Last Admin: 09/06/23 08:12 Dose: 10 ml Sodium Chloride (Sodium Chloride Flush 0.9% 10 Ml Syringe) 10 ml IVP PRN PRN PRN Reason: NEEDED PER PROVIDER ORDERS Divalproex Dr [Depakote Dr] 500 mg PO BID 09/03/23 Ezetimibe [Zetia] 10 mg PO DAILY 09/03/23 Furosemide [Lasix] 20 mg PO DAILY 09/03/23 Metoprolol Succinate [Toprol Xl] 25 mg PO BID 09/03/23 Pantoprazole [Protonix] 40 mg PO DAILY 09/03/23 QUEtiapine [SEROquel] 100 mg PO BID 09/03/23 Quetiapine Fumarate [Seroquel] 300 mg PO HS 09/03/23 Rivaroxaban [Xarelto] 20 mg PO QPM 09/03/23 Sertraline [Zoloft] 50 mg PO HS 09/03/23 Simvastatin [Zocor] 20 mg PO 09/03/23 clonazePAM [Clonazepam] 0.5 mg PO BID 09/03/23 Objective - Vital Signs/Intake & Output Reviewed Vital Signs: Yes Intake & Output: Intake & Output 09/03/23 09/04/23 09/05/23 09/06/23 23:59 23:59 23:59 23:59 Intake Total 605 2880.277 2514.000 225 Output Total 1005 2053 1560 Balance -400 827.277 954.000 225 - Objective General Appearance: positive: No acute distress (disheveled), Other (sleeping but wakes to voice and his family and will speak to them) Eyes Bilateral: positive: PERRL, EOMI ENT: positive: No signs of dehydration Neck: positive: No JVD, Other (shotty neck nodes) Respiratory: positive: No respiratory distress, Rales, Rhonchi Cardiovascular: positive: Regular rate & rhythm Abdomen: positive: Non-tender, No organomegaly, Nml bowel sounds, No distention Skin: positive: No rash, Warm, Pallor Extremities: positive: Full ROM, No pedal edema Neurologic/Psychiatric: positive: CN's nml (2-12), Disoriented to place, Disoriented to time. negative: Motor nml (generalized weakness and can't roll over, can barely speak) - Lab Results Fish Bones: 09/05/23 04:34 09/05/23 12:50 Sepsis Event Note (H) - Evaluation Current Stage of Sepsis: Resolved Possible source of Sepsis: positive: Pulmonary Assessment/Plan - Problem List (1) Acute hypoxemic respiratory failure Impression: Due to problem #2. Please see discussion with plan problem #2 At the beginning of his stay, it was anticipated this patient would be admitted for only 96 hours. Or attempt for transfer. This patient is not a candidate for transfer to another hospital. He is imminently dying. He will stay here until we can find placement for him. He does live in a memory care unit. We would need to make arrangements for hospice there. However I believe he is not stable enough for transfer especially since I will be stopping his nonrebreather. (2) Endobronchial mass Impression: A long conversation was had with his son and [id number] yesterday. Decision was made to transition to comfort measures. That was done yesterday. Today the family asked me to keep him on 15 L nonrebreather so that his sister and [id number] could come visit him. That has been done. They are now accepting that he will soon. I am going to transfer him to [facility]. I will change his nonrebreather to nasal cannula. And continue all the above medications for comfort.
[2023-09-06] MEDS: levETIRAcetam 500 MG/5 ML UDC PO SCH (20:39)
[2023-09-07 00:56] VITALS: O2SAT 88
[2023-09-07] MEDS ORDERED: ZINC OXIDE 20% OINT 30 GM TUBE TOP PRN (01:23)
[2023-09-07] MEDS: BISACODYL 10 MG SUPP PR ONE (06:24)
[2023-09-07 08:17] VITALS: BP 145/65
--- NOTE | 2023-09-07 09:18 | PROVIDER PROGRESS NOTE ---
Progress Note September 07, 2023 9:15 AM We have transitioned him to MedSurg. Respiratory rate 24-28. He is on 2-1/2 L nasal cannula. His nurse was worried about his O2 sats. They were 88%. I explained to her that we are just making him comfortable and to stop checking his O2 sats. Patient himself is sitting up eating breakfast. He is food is being cut up and he is enjoying his eggs and pancakes. Active Medications Albuterol/Ipratropium (Ipratropium/Albuterol 3 Ml Neb) 3 ml INH RTQID [facility] Last Admin: 09/06/23 23:46 Dose: Not Given Atropine Sulfate (Atropine 1% Ophth Drops 2 Ml) 1 - 4 drops SL Q2H PRN PRN Reason: Excessive secretions Last Admin: 09/06/23 20:39 Dose: 2 drops Dexamethasone (Dexamethasone 4 Mg/Ml Vial) 4 mg IVP DAILY PRN PRN Reason: Nausea / Vomiting Levetiracetam (Levetiracetam 500 Mg/5 Ml Udc) 500 mg PO BID [facility] Last Admin: 09/07/23 09:10 Dose: 500 mg Lorazepam (Lorazepam 2 Mg/Ml Vial) 0.5 mg IVP Q2H PRN PRN Reason: Anxiety Last Admin: 09/06/23 06:26 Dose: 0.5 mg Lorazepam (Lorazepam 2 Mg/Ml Vial) 1 mg IVP Q6H PRN PRN Reason: Anxiety/Agitation Metoprolol Tartrate (Metoprolol 5 Mg/5 Ml Vial) 5 mg IVP Q6H PRN PRN Reason: tachycardia >110 for >2 minute Morphine Sulfate (Morphine 2 Mg/Ml Carpuject) 2 mg IVP Q2HR PRN PRN Reason: Severe Pain (Level 7-10)/ SOA Last Admin: 09/06/23 20:39 Dose: 2 mg Multi-Ingredient Ointment (Zinc Oxide 20% Oint 30 Gm Tube) 1 applic TOP PRN PRN PRN Reason: Skin Care Nicotine (Nicotine 21 Mg Patch) 1 patch TOP DAILY [facility] Last Admin: 09/07/23 09:10 Dose: 1 patch Olanzapine (Olanzapine Odt 5 Mg Tablet) 5 mg TL DAILY [facility] Last Admin: 09/07/23 09:10 Dose: 5 mg Ondansetron HCl (Ondansetron 4 Mg/2 Ml Vial) 4 mg IVP Q6HR PRN PRN Reason: Nausea / Vomiting Ondansetron HCl (Ondansetron Odt 4 Mg Tablet) 4 mg TL Q8H PRN PRN Reason: Nausea / Vomiting Sodium Chloride (Sodium Chloride Flush 0.9% 10 Ml Syringe) 10 ml IVP 0100, 0900,1700 [facility] Last Admin: 09/07/23 09:11 Dose: 10 ml Sodium Chloride (Sodium Chloride Flush 0.9% 10 Ml Syringe) 10 ml IVP PRN PRN PRN Reason: NEEDED PER PROVIDER ORDERS Divalproex Dr [Depakote Dr] 500 mg PO BID 09/03/23 Ezetimibe [Zetia] 10 mg PO DAILY 09/03/23 Furosemide [Lasix] 20 mg PO DAILY 09/03/23 Metoprolol Succinate [Toprol Xl] 25 mg PO BID 09/03/23 Pantoprazole [Protonix] 40 mg PO DAILY 09/03/23 QUEtiapine [SEROquel] 100 mg PO BID 09/03/23 Quetiapine Fumarate [Seroquel] 300 mg PO HS 09/03/23 Rivaroxaban [Xarelto] 20 mg PO QPM 09/03/23 Sertraline [Zoloft] 50 mg PO HS 09/03/23 Simvastatin [Zocor] 20 mg PO HS 09/03/23 clonazePAM [Clonazepam] 0.5 mg PO BID 09/03/23 Temperature is 37, heart rate 96, blood pressure 145/65, 28 respiratory rate, no pain at this time. Had a temp to 38 5 at midnight last night Course left lung sounds, but almost no air movement. Right lung with prolonged end exhalation Heart rate varied between 95 and 45 this morning. Abdomen is soft, nontender with normal bowel sounds Extremities with no edema Assessment/Plan - Problem List (1) Acute hypoxemic respiratory failure Impression: Due to problem #2. Please see discussion with plan problem #2 At the beginning of his stay, it was anticipated this patient would be admitted for only 96 hours. Or attempt for transfer. This patient is not a candidate for transfer to another hospital. He is imminently dying. He will stay here until we can find placement for him. He does live in a memory care unit. We would need to make arrangements for hospice there. However I believe he is not stable enough for transfer at this time, especially since I will be stopping his nonrebreather. (2) Endobronchial mass Impression: A long conversation was had with his son and [id number]-[id number] 09/04. Decision was made to transition to comfort measures. That was done 09/04. On 09/05, family asked me to keep him on 15 L nonrebreather so that his sister and [id number]-rhw could come visit him. That has been done. They are now accepting that he will soon.Transferred him to [facility]. I will change his nonrebreather to nasal cannula. And continue all the above medications for comfort. (3) seizure disorder Unable to swallow when he was in the ICU the first few days. Day before yesterday he stabilized enough to start wanting to eat and we have started feeding him. He was on IV Keppra and we switched him to p.o. Keppra. He is usual home med is valproic acid. Plan: Continue Keppra for today, but reload his usual home medication orally. And then 2 days or now stop the Keppra
[2023-09-07] MEDS: DIVALPROEX DR 250 MG TABLET PO SCH (10:24)
[2023-09-07] MEDS: COD LIVER OIL/ZINC OXIDE 113 GM TUBE TOP PRN (17:50)
--- NOTE | 2023-09-08 07:50 | DISCHARGE SUMMARY ---
Discharge Summary Admit Date: 09/02/23 Discharge Date: 09/08/23 Discharging Provider: Antoinette Lopez MD Primary Care Provider: Fany Escamilla Condition at Discharge: Serious Discharge Disposition: 20 - DIAGNOSES Discharge Diagnoses with Status of Each Condition: 1. Sepsis 2. Acute respiratory failure with hypoxemia 3. Postobstructive pneumonia 4. Pleural effusion 5. Left mainstem endobronchial neoplasm uncertain behavior 6. Chronic atrial fibrillation 7. History of seizure disorder 8. Suboptimal nutrition 9. Alcohol induced dementia 10. Tobacco abuse - HPI History of Present Illness: [id number] presents from [facility] ([phone]) full code, with pmh TBI, parkinsons, seizure, schizophrenia, dementia, afib on xarelto and metoprolol, htn, hld recent covid last month. Patient is unreliable historian, alert to person and aware he is hospital but unable to state the year. Staff at [facility] called ems because his oxygen level was in low 80s on RA which is new for him. further history limited by patient dementia. spoke with RN at [facility] re: patient and home meds Here in the ED, patient was hypoxic requiring face mask. he was noted for sepsis. CXR shows left loculated pleural effusion and consolidation. Patient was started on abx in the ED. ED staff reached out to Hospital Medicine for admission and medical management. ED staff confirm to Hospital Medicine that hospital has IR that can do thoracentesis/ chest tube for loculated pleural effusion with PNA management. - Past Medical History Cardiovascular: reports: Hypertension, Atrial fibrillation Respiratory: reports: Other Neuro: reports: Other GI: reports: GERD Psych: reports: Depression, Anxiety, Schizophrenia Other Past Medical History: TBI/ ARF - HOSPITAL COURSE Hospital Course: The patient had severe hypoxia and even turning over in bed would drop his 02 sats to the 80s. REview of the CT showed that he most likely had an endobronchial lesion of the left mainstem causing postobstructive consolidation. He is a 2 ppd smoker. Many conversations were held with his defacto DPOA/son. The patient's brother in law (patient's sister's ) was very supportive emotionally and practically for his nephew. We discussed the option of transfer to a higher level of care for bronchoscopy and biopsy to determine what type of neoplasm. That would then guide us as to chemo, radiation and/or surgery. Taking into account his current status of living in a memory care unit, not what was considered a good quality of life, and that the patient has stated to his son: "I don't want to in this place.", son and brother in law felt that comfort measures were in order. I transitioned the patient to comfort meds, and I stopped antibiotics, nonrebreather but kept nasal canula. On the day of his , the patient was sitting up in bed to eat his meals. He was feeling better since I had started a nicotine patch. His sister, and other family came to say goodbye. I thought he would linger beyond a few days and began the delicate conversation of where to transfer him for hospice care. Son was very upset at that. But later than night, the patient quietly . Greater than 30 minutes was spent coordinating certificate since [facility] has not authorized me. - ALLERGIES Allergies/Adverse Reactions: Allergies Allergy/AdvReac Type Severity Reaction Status Date / Time Sulfa (Sulfonamide Allergy Hives Verified 09/02/23 18:18 Antibiotics) - MEDICATIONS Home Medications: Ambulatory Orders Medication Instructions Recorded Confirmed Divalproex [Klever Moses] 500 mg PO BID 09/03/23 09/03/23 Ezetimibe [Zetia] 10 mg PO DAILY 09/03/23 09/03/23 Furosemide [Lasix] 20 mg PO DAILY 09/03/23 09/03/23 Metoprolol Succinate [Toprol Xl] 25 mg PO BID 09/03/23 09/03/23 Pantoprazole [Protonix] 40 mg PO DAILY 09/03/23 09/03/23 QUEtiapine [SEROquel] 100 mg PO BID 09/03/23 09/03/23 Quetiapine Fumarate [Seroquel] 300 mg PO HS 09/03/23 09/03/23 Rivaroxaban [Xarelto] 20 mg PO QPM 09/03/23 09/03/23 Sertraline [Zoloft] 50 mg PO HS 09/03/23 09/03/23 Simvastatin [Zocor] 20 mg PO HS 09/03/23 09/03/23 clonazePAM [Clonazepam] 0.5 mg PO BID 09/03/23 09/03/23 - LABS Result Diagrams: 09/05/23 04:34 09/05/23 12:50 - SEPSIS Current Stage of Sepsis: Resolved Possible source of Sepsis: Pulmonary
== END 2023-09-07 20:30 | disposition expired | DRG 871 ==
LOC: EDUNIT# → ED 17:54 → ICU 20:57 → MS2 09-06 18:16
PROVIDERS: ADMIT Internal Medicine; ATTEND Internal Medicine
DX: A41.9 Sepsis, unspecified organism (principal); J18.9 Pneumonia, unspecified organism; J18.8 Other pneumonia, unspecified organism; R09.02 Hypoxemia; J96.01 Acute respiratory failure with hypoxia; Z20.822 Contact with and (suspected) exposure to COVID-19; J90 Pleural effusion, not elsewhere classified; I48.20 Chronic atrial fibrillation, unspecified; J98.19 Other pulmonary collapse; F10.27 Alcohol dependence with alcohol-induced persisting dementia; D38.1 Neoplasm of uncertain behavior of trachea, bronchus and lung; G40.909 Epilepsy, unspecified, not intractable, without status epilepticus; F20.9 Schizophrenia, unspecified; G20.A1 Parkinson's disease without dyskinesia, without mention of fluctuations; I10 Essential (primary) hypertension; E78.5 Hyperlipidemia, unspecified; K21.9 Gastro-esophageal reflux disease without esophagitis; F32.A Depression, unspecified; F41.9 Anxiety disorder, unspecified; R59.9 Enlarged lymph nodes, unspecified; R13.10 Dysphagia, unspecified; D72.829 Elevated white blood cell count, unspecified; F17.210 Nicotine dependence, cigarettes, uncomplicated; Z51.5 Encounter for palliative care; Z66 Do not resuscitate; Z79.01 Long term (current) use of anticoagulants; Z86.16 Personal history of COVID-19; Z87.820 Personal history of traumatic brain injury; Z88.2 Allergy status to sulfonamides
CPT/HCPCS: 36415; 71045; 71260; 74018; 74177; 76604; 80048; 80053; 81599; 82330; 82803; 83605; 83690; 83735; 84100; 84132; 85025; 85610; 87040; 87150; 87633; 93005; 94640; 99285; A9270; J1650; J2060; J3370; Q9967; 82306; 83615; 83986; 84157